=== PATIENT | male | born 1950 | race Caucasian/White ===

== ENCOUNTER → 2017-09-27 | Outpatient (CLI) | payer MEDICARE ==
[~2017-09-27] MED LIST: AMLODIPINE5 MG PO; CAPTOPRIL100 MG PO; CAPTOPRIL50 MG PO; GLYBURIDE5 MG PO; HYDROCHLOROTHIA25 MG PO; LOPRESSOR25 MG PO; METFORMIN HCL500 MG PO; MICRO-K 1010 MEQ PO; NORVASC; TOPROL XL50 MG PO; [UNRECOGNIZED DRUG - REMARK]
--- NOTE | ~2017-09-27 | PF ---
[place], [place] PULMONARY FUNCTION TEST [facility]: [facility]EN [facility]: [id number] UNIT #: [id number] ROOM: DOCTOR: SYLWIA ANGEL MD,ALEXIS BIRTHDATE: [birth year] DOS: 09/28/2017 ORDERED BY: Dr. Shaye Gaffney. HISTORY: The patient recorded as 66-year-old male, height of 63 inches, weight of 195 pounds with BMI of 34.5. The testing was done for assessment of symptoms of breath. Tobacco use was noted 1 pack of cigarettes per day for the patient for only 2 years. SPIROMETRY: The FVC was recorded at 3.57 liters, 106% predicted value normal. The FEV1 recorded 3.09 liters, 125% predicted value normal. The ratio of FEV1/FVC was recorded as 74%. Flow volume loop was noted normal. No postbronchodilator changes noted. LUNG VOLUME: Thoracic gas volume recorded as 140%, residual volume 149%, total lung capacity 110%. RV/TLC ratio 139%. The lung volume suggestive of mild obstructive airway pattern. The lung diffusion noted at 72%. It was not corrected carbon monoxide hemoglobin values. The patient's airway resistance and passive conductance noted normal. IMPRESSION: Mild reduction of lung diffusion noted for this patient, of unclear significance with mild air trapping as well. Clinical correlation would be advised. ALEXIS DAO MD CM:PFREPORT:PULMONARY FUNCTION TEST 1132 1817 ALEXIS ANGEL MD
== END | disposition home or self-care (01) ==
LOC: CP 08:25
DX: R06.02 Shortness of breath (principal)

== ENCOUNTER → 2017-10-03 | Outpatient (CLI) | payer MEDICARE | END | disposition home or self-care (01) | LOC: LAB 12:03 | DX: R50.9 Fever, unspecified (principal) ==

== ENCOUNTER 2017-10-18 16:28 | Emergency (ER) | payer MEDICARE ==
[~2017-10-18] VITALS: Ht 160 cm; Wt 87.5 kg
[2017-10-18 16:31] VITALS: BP 140/73
== END 2017-10-18 18:02 | disposition home or self-care (01) ==
LOC: ED 16:28
DX: S61.212A Laceration without foreign body of right middle finger without damage to nail, initial encounter (principal); Z96.651 Presence of right artificial knee joint; Z98.890 Other specified postprocedural states; Z79.899 Other long term (current) drug therapy; W26.0XXA Contact with knife, initial encounter; Y93.89 Activity, other specified; Y92.89 Other specified places as the place of occurrence of the external cause; Y99.9 Unspecified external cause status

== ENCOUNTER 2018-07-11 11:20 | Inpatient (IN) | payer MEDICARE ==
[~2018-07-11] VITALS: Ht 160 cm; Wt 88.1 kg
--- NOTE | ~2018-07-11 | PR ---
[place], [place] PROGRESS NOTE NAME: BERNARDO PETERSEN JR [facility] #: [id number] UNIT #: [id number] ROOM: 405 DOCTOR: ANNEL MELENDREZ MD BIRTHDATE: [birth year] DOS: 07/14/2018 SUBJECTIVE: The patient looks good, feels good and he does not have any complaints. He has a very rare cough. OBJECTIVE: VITAL SIGNS: Graphic trend shows a blood pressure 164/88, pulse of 70, respirations 20, temperature 98.6. LUNGS: Diminished breath sounds, clear. HEART: Regular. ABDOMEN: Obese, soft, nontender. EXTREMITIES: Without any edema. ASSESSMENT AND PLAN: 1. Right middle and lower lobe pneumonia, improving with antibiotics. 2. Mucus plugging with tracheobronchial lavage done yesterday. Bronch results so far showing normal tracy. 3. Chronic kidney disease stage 5, stable. 4. Type 2 diabetes mellitus, non-insulin dependent, with hypoglycemia. Medications were discontinued yesterday. This morning, blood sugar is slightly on the high side because D50 was given. I told the patient to hold off on Amaryl at home right now and we will restart it at a lower dose at a later time. 5. Metabolic encephalopathy from a combination of hypoglycemia and medications. Xanax dosage has been cut down significantly. Plan is to discharge to home today. ANNEL MELENDREZ MD CM:PNTRANS 0809 1008 ANNEL MELENDREZ MD 07/14/18 1007 interface
--- NOTE | ~2018-07-11 | CON ---
[place], [place] REPORT OF CONSULTATION NAME: BERNARDO PETERSEN JR [facility] #: [id number] UNIT #: [id number] ROOM: 405 DOCTOR: ALEXIS PALOMO MD BIRTHDATE: [birth year] DOS: 07/12/2018 PULMONARY CONSULTATION REASON FOR CONSULTATION: Assess the patient for the current medical management of acute pneumonia. HISTORY OF PRESENT ILLNESS: This is a 67-year-old white male patient, who has been admitted to the hospital under the care of Dr. Shaye Gaffney. The patient unable to provide me history. The patient noted current disorientation and not having a normal communication verbally. The patient has been noted ongoing acute illness ongoing with the respiratory symptoms on 06/22/2018. The symptom was noted progressive worsening, treated as an outpatient, but the symptoms have not responded to the treatment. The patient has a chest x-ray done outpatient that was reporting evidence of acute pneumonia in the lungs. The patient admitted to the hospital. He has been given Xanax 1 mg b.i.d. dosing. The patient was noted significant disoriented this morning, some confusional status, unable to give me any history. The symptoms had reported with shortness of breath with exertion, nonproductive cough as well. There were no symptoms of hemoptysis reported. The patient has been known with history of obstructive sleep apnea disorder in the past. The patient has been seen. Other history that has been documented in review of my medical record from the office setting. The patient's last assessment in 10/2017 as well as documentation medical records by Dr. Shaye Gaffney on this current admission. Review of systems could not be completed because of that. PAST MEDICAL HISTORY: Known with: 1. Obstructive sleep apnea disorder that has been treated with the CPAP. 2. Chronic kidney disease. 3. Essential hypertension. 4. Type 2 diabetes mellitus. 5. Acute coronary artery disease. 6. Mixed hyperlipidemia. 7. General anxiety disorder. SOCIAL HISTORY: The patient is . He has no children, lives at home prior to admission to the hospital. Tobacco use noted from age of [age] years old, 1 pack of cigarettes per day that was discontinued approximately 27 years ago. PAST SURGICAL HISTORY: 1. Noted with a surgery of the knee on the left side, ____ repair. 2. Lumbar laminectomy. 3. Cardiac catheterization and coronary artery stent insertion. FAMILY HISTORY: The patient's father at 89 years old, complication of congestive heart failure. Mother at 85 years old, complications of renal failure. HOME MEDICATIONS: Listed as use of aspirin, Rocaltrol, Coreg, Plavix, fenofibrate, ferric citrate, Lasix, Amaryl, hydralazine, Imdur, and Ranexa. [place], [place] REPORT OF CONSULTATION [facility] [id number] UNIT #: [id number] ROOM: 405 DOCTOR: SYLWIA ANGEL MD,ALEXIS BIRTHDATE: [birth year] DRUG ALLERGIES: No known drug allergies. CURRENT MEDICATIONS: Administered during this hospitalization use of hydralazine, Imdur, Lasix 40 mg oral, Plavix, calcitriol, aspirin, DuoNeb, Amaryl, Ranexa, Coreg, Mucinex, Xanax, Rocephin and Levaquin. PHYSICAL EXAMINATION: GENERAL: This is a 67-year-old white male patient who has been currently noted sitting on the bed without acute distress, but noted not to be completely oriented to time and place. VITAL SIGNS: Height of 5 feet 3 inches, weight 194 pounds, BMI 34.3. Normal temperature, respiratory rate 18-20, heart rate 63-77, blood pressure 152/80-165/79. Pulse oxygen saturation patient room air 98% saturation. HEENT: Head was atraumatic. Eyes nonicterus. NECK: Supple. CARDIOVASCULAR: S1, S2 audible. LUNGS: Noted with crackles mostly in the lower lung base, greater on the right than the left side. ABDOMEN: Soft, nontender. Bowel sounds present. EXTREMITIES: No acute edema. MUSCULOSKELETAL: Without acute deformities. CENTRAL NERVOUS SYSTEM: Cranial nerve for the patient cannot be examined. No gross focal neurologic deficit. MUSCULOSKELETAL: Moving upper and lower extremities at his own will. LABORATORY DATA: BMP on admission, BUN 72, creatinine 5.74. CBC of 07/12/2018, WBC count of 4.9, hemoglobin 9.1, hematocrit 29.4, and platelet count was normal. The CT scan of the chest that was done this morning that was personally reviewed shows moderate area of consolidation, infiltration, which appeared to be patchy and some consolidative area coalescence noted in the right lower lobe. Neck of the IV contrast does limit the assessment. Mediastinal structures. There were no pleural fluid noted grossly. Remaining lungs appeared to be clear. IMPRESSION: 1. The patient was noted this presentation may be related to medication. Other etiology to be excluded. Central nervous origin as well. 2. Acute pneumonia, right lower lobe. The patient possibly to aspiration pneumonia can be excluded with failed outpatient treatment. 3. The patient with chronic nicotine dependence, which was discontinued several years ago. 4. Obstructive sleep apnea disorder. 5. Chronic kidney disease stage 4 with possibility of acute superimposed component, acute injury secondary to intravascular volume depletion can be excluded. 6. Rule out metabolic acidosis. The patient on high PEEP because of the change in mental status and disorientation as well. PLAN OF MANAGEMENT: The patient antibiotic adjust kidney functions will be [place], [place] REPORT OF CONSULTATION NAME: BERNARDO PETERSEN JR UNIT #: [id number] ROOM: 405 DOCTOR: ALEXIS PALOMO MD BIRTHDATE: [birth year] continued. The patient is getting Levaquin, which is atypical coverage. Order urine for legionella antigen and strep antigen. Sputum for Gram stain and culture. Therapeutic bronchoscopy diagnostic, which has been scheduled to be done in the morning. The consent will be obtained from the patient's family member, certainly the patient would not be able to give me consent at the present time. Collect the sputum for influenza A and B, nasal washing has been ordered. The respiratory virus panel will be obtained as well. Other additional treatment changes will be done based on progression of the illness. Supportive care, other therapy, plan of management and care plan for the patient as well. Order the bronchodilator to help mobilize secretions as well. ALEXIS DAO MD CM:CONSTR:REPORT OF CONSULTATION 1257 07/12/18 [facility] interface
--- NOTE | ~2018-07-11 | DS ---
[place], [place] DISCHARGE SUMMARY NAME: BERNARDO PETERSEN JR [facility] #: [id number] UNIT #: [id number] ROOM: 405 DOCTOR: ANNEL MELENDREZ MD BIRTHDATE: [birth year] DOS: HOSPITAL COURSE: The patient is 67 years old. The patient is very well known to us, comes in with complaints of difficulty breathing and cough. Please refer to H and P for details. The patient after admission had a CT of the chest, which showed continued presence of pneumonia in the right middle and right lower lobe. The patient had failed outpatient regimen. Dr. Keating was consulted. The patient was placed on IV antibiotics and scheduled for a bronchoscopy. He developed some evidence of metabolic encephalopathy from a combination of hypoglycemia and high doses of Xanax that he has received at night. He does have a history of obstructive sleep apnea and was not using his BiPAP here. After being treated with IV antibiotics and a bronchoscopy, the patient is definitely improving, bronch cultures are negative and this morning, the patient feels better and his mental status has also improved. The plan is to discharge him to home. DISCHARGE DIAGNOSES: 1. Right middle and lower lobe pneumonia. 2. Metabolic encephalopathy. 3. Chronic kidney disease. 4. Benign hypertension. 5. Coronary artery disease with history of stent placement. 6. Mixed hyperlipidemia. 7. Aortic stenosis. 8. Generalized anxiety disorder. 9. Type 2 diabetes mellitus with hypoglycemia and metabolic encephalopathy. DISCHARGE MEDICATIONS: Will be doxycycline 100 mg twice a day for 10 days; hydralazine 50, which is increased to 3 times a day; Ranexa 500 b.i.d., Lasix 40 daily, Coreg 25 b.i.d., Plavix 75 daily, ferric citrate 210 tablet 1 tablet daily, isosorbide 30 daily, Rocaltrol 0.25 daily, aspirin 81 daily, fenofibrate 134 mg daily. Glimepiride was discontinued and the Xanax was made 0.5 mg daily at bedtime p.r.n. only. The Glimepiride will be restarted at a low dose once the blood sugar starts going up. [place], [place] DISCHARGE SUMMARY NAME: BERNARDO PETERSEN JR [facility] #: [id number] UNIT #: [id number] ROOM: 405 DOCTOR: ANNEL MELENDREZ MDDATE: [birth year] ANNEL MELENDREZ MD CM:LUCIANA 0 9 ANNEL MELENDREZ MD 07/14/18 0909 interface
--- NOTE | ~2018-07-11 | PROC NOTE ---
[place], [place] PROCEDURE NOTE NAME: [facility]EN JR [facility] [id number] UNIT #: [id number] ROOM: 405 DOCTOR: SYLWIA ANGEL MD,ALEXIS BIRTHDATE: [birth year] DOS: 07/13/2018 FIBEROPTIC BRONCHOSCOPY PREOPERATIVE DIAGNOSIS: The patient has large area of consolidation and infiltration, right lower lobe with severe nonproductive cough. POSTOPERATIVE DIAGNOSES: The patient has large area of consolidation and infiltration, right lower lobe with severe nonproductive cough. No endobronchial obstructive lesions. PROCEDURE DESCRIPTION: Informed consent was obtained from the patient. The patient was brought to the OR and placed in supine position. Conscious sedation administered by the Anesthesia Department. After achieving appropriate sedation, airway introduced into the mouth. Bronchoscope advanced into the airway into laryngeal area. Epiglottis and vocal cord seen. The vocal cord is moving symmetrical movement. Bronchoscope advanced through the vocal cord to the tracheal lumen. Tracheal lumen was identified. Tracheal lumen noted small amount of purulent secretion, suctioned out the giselle level. The right upper, right lower, left upper, lingula, and lower lobe bronchi were all examined. The patient noted moderate purulent secretion, right lower lobe endobronchial tree. Bronchial washing was taken and the labs, in the right lower lobe as well with mini BAL specimen. Procedure well tolerated by the patient without difficulty. Bronchial washing sent for all appropriate cultures. Procedure well tolerated by the patient. Postoperative finding will be discussed with the patient once the patient recovered the effects of acute sedation. No change in treatment immediately otherwise, it will be necessary. ALEXIS DAO MD CM:PROCNOTE:PROCEDURE NOTE 1314 0029 ALEXIS ANGEL MD
--- NOTE | ~2018-07-11 | WRIGHTHP ---
[place], [place] PATIENT HISTORY AND PHYSICAL EXAM NAME: BERNARDO PETERSEN JR [facility] #: [id number] UNIT #: [id number] ROOM: 405 DOCTOR: ANNEL MELENDREZ MD BIRTHDATE: [birth year] DOS: 07/11/2018 HISTORY OF PRESENT ILLNESS: The patient is 67 years old. The patient comes into the office with complaints of increasing cough, shortness of breath, was seen in the office on 06/22/2018 with similar complaints which started 3-4 days prior to being seen. Chest x-ray showed a small pneumonia. The patient was started on antibiotics and sent home. Since 06/22/2018 after the completion of antibiotics, he continues to feel poorly with continued shortness of breath. He was seen by Cardiology on Tuesday, had a chest x-ray ordered, which showed continued presence of pneumonia, so the patient was admitted to the hospital. He denies having any fever, any chills, any chest pains or palpitations. It is a terrible cough and is unable to sleep at night. He also has been increasingly short of breath on exertion. PAST MEDICAL HISTORY: Significant for; 1. Chronic kidney disease. 2. Benign hypertension. 3. Type 2 diabetes mellitus. 4. Coronary artery disease with history of stent placement. 5. Mixed hyperlipidemia. 6. Generalized anxiety disorder. MEDICATIONS: The patient currently is on are aspirin 81 daily, Xanax 1 mg twice a day p.r.n., Rocaltrol 0.25 mg Tuesday, Tuesday and Tuesday, Coreg 25 b.i.d., Plavix 75 daily, fenofibrate 134 daily, ferric citrate 210 daily, Lasix 40 daily, glimepiride 4 mg daily, hydralazine 50 b.i.d., isosorbide 30 daily, Ranexa 500 b.i.d. SOCIAL HISTORY: Nonsmoker. Does not use any alcohol. PHYSICAL EXAMINATION: GENERAL: He is awake and alert and oriented, slightly tachypneic, but the saturation on room air was in the 90s without any drop and exercise. VITAL SIGNS: Pressure is 165/79, pulse of 60, respirations 20, temperature 98.6. LUNGS: Diminished breath sounds, a few scattered rales heard in the right mid lung as well as in the bases. HEART: Regular. ABDOMEN: Obese, soft, nontender. EXTREMITIES: Without any edema. LABORATORY DATA: White cell count is 4.9, hemoglobin 9.1, hematocrit 29.4, platelets 244. BMP: Glucose 193, BUN 72, creatinine 5.74, GFR 10. Stage 5 renal failure. Sodium 138, potassium is 3.9, chloride 106, bicarbonate 25. CT of the chest shows right lower lobe pneumonia. ASSESSMENT AND PLAN: 1. The patient presents with shortness of breath, cough and recent diagnosis of pneumonia, which is not improved with conventional outpatient treatment, has been admitted. Intravenous antibiotics have been ordered. Consultation with [place], [place] PATIENT HISTORY AND PHYSICAL EXAM NAME: BERNARDO PETERSEN JR UNIT #: [id number] ROOM: 405 DOCTOR: ANNEL MELENDREZ MD BIRTHDATE: [birth year] Dr. Keating has been obtained. 2. Benign hypertension, poorly controlled. Readjust medications. 3. Chronic kidney disease stage 5, a slow intravenous hydration will be given for 24 hours. 4. Generalized anxiety disorder. This morning, the patient has developed metabolic encephalopathy, possibly from medications, but we will check a CT of the head in the morning. ANNEL MELENDREZ MD CM:HISPHYS:PATIENT HISTORY AND PHYSICAL EXAMINATION ANNEL MELENDREZ MD 07/12/18 0852 interface
--- NOTE | ~2018-07-11 | EKG ---
[place], [place] ELECTROCARDIOGRAM REPORT NAME: BERNARDO PETERSEN JR UNIT #: [id number] ROOM: 405 DOCTOR: DAINA DRAFT REPORT BIRTHDATE: [birth year] [facility] Test Date: 2018-07-12 Test Time: 12:32:31 Pat Name: BERNARDO PETERSEN Department: Room: 405 1 Gender: M [employer] Expert: 16 : 1950 Requested By: ALEXIS ANGEL Order Number: [id number] Reading MD: Jaron Dow MD Measurements Intervals Pinole Rate: 67 P: 33 SC: 212 QRS: -13 QRSD: 120 T: 59 QT: 494 QTc: 522 Interpretive Statements Sinus rhythm Multiple ventricular premature complexes Borderline prolonged SC interval LVH with secondary repolarization abnormality Prolonged QT interval Baseline wander in lead(s) V2 Electronically Signed On 07-13-2018 14:07:24 PST by Jaron Dow MD CM:EKGRPT:ELECTROCARDIOGRAM REPORT 1232 1407 ALEXIS LAMA DRAFT REPORT ALEXIS ANGEL MD
--- NOTE | ~2018-07-11 | PR ---
[place], [place] PROGRESS NOTE NAME: BERNARDO PETERSEN JR [facility] #: [id number] UNIT #: [id number] ROOM: 405 DOCTOR: SYLWIA ANGEL MD,ALEXIS BIRTHDATE: [birth year] DOS: 07/13/2018 SUBJECTIVE: The patient was noted to fully awake, alert, and oriented at this time as the medication ____ as Xanax. Disorientation has been improved. The cough has been still noted moderate and nonproductive. There were no symptoms of hemoptysis. Denies symptoms of chest pain. Denies symptoms of fever or chills. The patient is n.p.o. past midnight for bronchoscopy that was planned to be done today. Denies symptoms of nausea, vomiting, diarrhea, or any abdominal pain, hematemesis, melena. General weakness were reported. Remaining systems reviewed. They were noted all negative. OBJECTIVE: VITAL SIGNS: For the patient this morning, normal temperature, respiratory rate 20, heart 78, blood pressure 160/80. Pulse ox saturation was recorded as 96% on room air. HEENT: Head was atraumatic. Eyes nonicterus. NECK: Supple. CARDIOVASCULAR: S1, S2 is audible. LUNGS: Without any wheezing. Crackles noted in the right lower lung. ABDOMEN: Soft, nontender. Bowel sounds present. EXTREMITIES: Without acute edema. MUSCULOSKELETAL: Without acute deformity. CENTRAL NERVOUS SYSTEM: The patient's cranial nerves 2-12 intact. No focal deficit. LABORATORY DATA: CBC today, WBC count normal, hemoglobin 9.4, platelet count normal. Mycoplasma antibody IgG and IgM were both noted as normal range. CMP this morning, glucose is 34, which is already treated. BUN 65, creatinine 5.11. IMPRESSION: 1. The patient who has been currently noted large area of consolidation of acute infiltration in the right lower lobe. The arterial blood gas does not show hypercapnia yesterday which was obtained as a pH of 7.41, pCO2 of 33, pO2 of 89. This was done on room air. 2. The patient with iznhr-xj-hisxwff kidney injury with increased creatinine gradually was noted. 3. History of known obstructive sleep apnea disorder. 4. Hypoglycemia, already treated. PLAN OF MANAGEMENT: Proceed with the fiberoptic bronchoscopy as planned. No other change in treatment at this time immediately will be necessary and adjustment of medication or treatment changes will be ordered after the bronchoscopy. In the meantime, other therapy, plan of management, continue as well. Usual care. [place], [place] PROGRESS NOTE NAME: BERNARDO PETERSEN JR UNIT #: [id number] ROOM: [facility] DOCTOR: ALEXIS PALOMO MD BIRTHDATE: [birth year] ALEXIS DAO MD CM:PNTRANS 1312 002 ALEXIS ANGEL MD 07/14/18 0021 interface
--- NOTE | ~2018-07-11 | PR ---
[place], [place] PROGRESS NOTE [id number] #: [id number] ROOM: 405 DOCTOR: ALEXIS PALOMO MD BIRTHDATE: [birth year] DOS: 07/14/2018 PULMONARY PROGRESS NOTE SUBJECTIVE: The patient has a bronchoscopy done yesterday for right lower lobe pneumonia. The respiratory symptoms have been noted significantly improved including his cough. Denies symptoms of chest pain. Denies symptoms of fever or chills. OBJECTIVE: VITAL SIGNS: For the patient, which were recorded showed normal temperature, respiratory rate 20, pulse 77, blood pressure of 164/88. The pulse oxygen saturation recorded as 96% on room air. HEENT: Shows head was atraumatic. Eyes nonicterus. NECK: Supple. CARDIOVASCULAR: S1, S2 is audible. LUNGS: The patient was noted with occasional crackles in the right lower lung, otherwise clear. ABDOMEN: Soft, nontender, bowel sounds present. EXTREMITIES: Without any acute edema. LABORATORY DATA: Cultures of the bronchial washing was noted preliminary normal tracy. The Gram stain with many white blood cells, few epithelial cells, moderate Gram-positive cocci in clusters. IMPRESSION: 1. Acute right lower lobe pneumonia, which was noted assessed with bronchoscopy, clinical improvement was noted. 2. Obstructive sleep apnea disorder. PLAN OF TREATMENT: The patient will be discharged home on Levaquin 250 mg every day for the next 5 days of treatment. Outpatient followup was suggested for this patient. Additional treatment changes will be ordered based on the progression of illness. Discharge planning was discussed with Dr. Shaye Gaffney. [place], [place] PROGRESS NOTE [facility]: [facility] [id number] UNIT #: [id number] ROOM: 405 DOCTOR: ALEXIS PALOMO MD BIRTHDATE: [birth year] ALEXIS DAO MD CM:PNTRANS 1009 50 ALEXIS ANGEL MD 07/14/182249 interface
--- NOTE | ~2018-07-11 | PR ---
[place], [place] PROGRESS NOTE NAME: BERNARDO PETERSEN JR [facility] #: [id number] UNIT #: [id number] ROOM: 405 DOCTOR: ANNEL MELENDREZ MD BIRTHDATE: [birth year] DOS: 07/13/2018 SUBJECTIVE: The patient was seen after his bronchoscopy, has a cough, but otherwise feels okay. His mental status is improved. OBJECTIVE: VITAL SIGNS: Graphic trend shows a pressure of 148/82, pulse of 86, respirations 18, temperature 97.2. LUNGS: Clear except for few rales in the right side. HEART: Regular. ABDOMEN: Obese, soft, nontender. EXTREMITIES: Without any edema. LABORATORY DATA: WBC count is 7.2, hemoglobin 9.4, hematocrit 30.1, platelets 270. Comprehensive glucose 34, BUN 65, creatinine 5.11, sodium 142, potassium 4.0, chloride 111, bicarbonate 22. Liver enzymes normal. Mycoplasma pneumoniae antibody studies normal. ASSESSMENT AND PLAN: 1. The patient who presents with right-sided pneumonia, on IV antibiotics. 2. Continued cough and shortness of breath. Bronchoscopy was performed this morning. Awaiting culture results. 3. Metabolic encephalopathy, most likely from hypoglycemia as well as Xanax high doses that he received, which was discontinued. 4. Type 2 diabetes mellitus, controlled, but blood sugar was low this morning. We will discontinue medications. ANNEL MELENDREZ MD CM:PNNIMESH 0840 1130 ANNEL MELENDREZ MD 07/13/18 1129 interface
[2018-07-11] MEDS ORDERED: RANEXA500 M1 PO (11:51)
[2018-07-11] MEDS ORDERED: HYDRALAZINE HYD50 MG PO (11:51)
[2018-07-11] MEDS ORDERED: FUROSEMIDE40 MG PO (11:52)
[2018-07-11 11:53] VITALS: BP 153/80
[2018-07-11] MEDS ORDERED: CARVEDILOL25 MG PO (11:53)
[2018-07-11] MEDS ORDERED: AMARYL4 MG PO (11:54)
[2018-07-11] MEDS ORDERED: CLOPIDOGREL75 MG PO (11:54)
[2018-07-11] MEDS ORDERED: AURYXIA210 MG PO (11:55)
[2018-07-11] MEDS ORDERED: ISOSORBIDE30 MG PO (11:55)
[2018-07-11] MEDS ORDERED: Rocaltrol0.25 MCG PO (11:56)
[2018-07-11] MEDS ORDERED: ASPIRIN ADULT L81 M1 PO (11:57)
[2018-07-11] MEDS ORDERED: FENOFIBRATE MI134 MG PO (11:59)
[2018-07-11] MEDS ORDERED: XANAX1 MG PO ×2 (12:31→12:32)
[2018-07-11 15:16] LABS: CREATININE 5.74 mg/dL (0.70-1.30); POTASSIUM 3.9 mmol/L (3.5-5.1)
[2018-07-11 16:00] VITALS: BP 172/87
[2018-07-11 20:00] VITALS: BP 165/96
[2018-07-12] VITALS: BP 165/79
[2018-07-12 07:31] LABS: BASO % 0.6 % (0.0-1.0); EOS # 0.1 10*3/uL (0.0-0.4); HEMATOCRIT 29.4 % (42.0-52.0); HEMOGLOBIN 9.1 g/dl (14.0-18.0); LYMPH % 19.7 % (27.0-41.0); MEAN CELL VOLUME 92.5 fl (80.0-94.0); MEAN CORPUSCULAR HGB 28.6 pg (27.0-31.0); MEAN PLATELET VOLUME 9.1 fl (9.6-12.3); MONO # 0.5 10*3/uL (0.1-1.0); MONO % 10.5 % (3.0-9.0); NEUT # 3.3 10*3/uL (2.3-7.9); PLATELET COUNT AUTOMATED 244 10*3/uL (130-400); RED BLOOD COUNT 3.18 10*6/uL (4.50-5.90); RED CELL DISTRI WIDTH 17.8 % (0-14.5); WHITE BLOOD COUNT 4.9 10*3/uL (4.8-10.8)
[2018-07-12 10:50] LABS: ACT PARTIAL THROMBO TIME 26.4 SECONDS (20.8-31.5); INTERNATIONAL NORM RATIO 1.1 (2.0-3.5)
[2018-07-12 12:00] VITALS: BP 127/53
[2018-07-12 13:22] LABS: ABG BASE EXCESS -2.7 mmol/L (-2.0-2.0); ABG O2 SATURATION 97.9 % (95-97); ARTERIAL BLOOD GAS PCO2 33.6 mmHg (35-45); ARTERIAL BLOOD GAS PH 7.411 (7.35-7.45); ARTERIAL BLOOD GAS PO2 89.4 mmHg (80-90)
[2018-07-12 14:05] LABS: MYCOPLASMA PNEUMONIAE IGG <100 U/mL (0-99); MYCOPLASMA PNEUMONIAE IGM <770 U/mL (0-769)
[2018-07-12 16:00] VITALS: BP 119/70
[2018-07-12 20:00] VITALS: BP 170/95
[2018-07-13] VITALS (9 sets, daily range): BP systolic 135–221; BP diastolic 71–116
[2018-07-13 06:41] LABS: BASO # 0.1 10*3/uL (0.0-0.1); BASO % 0.8 % (0.0-1.0); EOS # 0.3 10*3/uL (0.0-0.4); EOS % 3.5 % (1.0-4.0); HEMATOCRIT 30.1 % (42.0-52.0); HEMOGLOBIN 9.4 g/dl (14.0-18.0); LYMPH # 1.4 10*3/uL (1.3-4.4); MEAN CELL VOLUME 91.8 fl (80.0-94.0); MEAN CORPUSCULAR HGB 28.7 pg (27.0-31.0); MEAN CORPUSCULAR HGB CONC 31.2 g/dl (33.0-37.0); MEAN PLATELET VOLUME 9.6 fl (9.6-12.3); MONO # 0.8 10*3/uL (0.1-1.0); MONO % 11.4 % (3.0-9.0); NEUT # 4.7 10*3/uL (2.3-7.9); PLATELET COUNT AUTOMATED 270 10*3/uL (130-400); RED BLOOD COUNT 3.28 10*6/uL (4.50-5.90); RED CELL DISTRI WIDTH 18.2 % (0-14.5); WHITE BLOOD COUNT 7.2 10*3/uL (4.8-10.8)
[2018-07-13 07:17] LABS: CREATININE 5.11 mg/dL (0.70-1.30)
[2018-07-14] VITALS: BP 164/88
[2018-07-14 07:02] LABS: ALBUMIN 2.7 gm/dl (3.1-4.5); CREATININE 5.23 mg/dL (0.70-1.30); POTASSIUM 3.7 mmol/L (3.5-5.1); TOTAL PROTEIN 6.6 gm/dL (6.4-8.2)
[2018-07-14] MEDS ORDERED: HYDRALAZINE HYD50 MG PO (08:09)
[2018-07-14] MEDS ORDERED: DOXYCYCLINE100 M3 PO (08:09)
[2018-07-14 14:09] LABS: ACID FAST SPEC PROCESSING Concentration (.)
[2018-07-15 03:07] LABS: ADENOVIRUS Negative (Negative); INFLUENZA A Negative (Negative); INFLUENZA B Negative (Negative); METAPNEUMOVIRUS Negative (Negative); PARAINFLUENZA 1 Negative (Negative); PARAINFLUENZA 2 Negative (Negative); PARAINFLUENZA 3 Negative (Negative); RHINOVIRUS Negative (Negative); RSV A Negative (Negative); RSV B Negative (Negative)
== END 2018-07-14 10:22 | disposition home or self-care (01) | DRG 70 ==
LOC: 4E 11:20
PROVIDERS: Internal Medicine; Internal Medicine Critical Care Medicine
PROC: 0BC18ZZ Extirpation of Matter from Trachea, Via Natural or Artificial Opening Endoscopic (ICD-10-PCS; principal; 2018-07-13)
PROC: 0BC68ZZ Extirpation of Matter from Right Lower Lobe Bronchus, Via Natural or Artificial Opening Endoscopic (ICD-10-PCS; principal; 2018-07-13)
PROC: 0B9F8ZX Drainage of Right Lower Lung Lobe, Via Natural or Artificial Opening Endoscopic, Diagnostic (ICD-10-PCS; principal; 2018-07-13)
DX: G93.41 Metabolic encephalopathy (principal); J18.1 Lobar pneumonia, unspecified organism; I12.0 Hypertensive chronic kidney disease with stage 5 chronic kidney disease or end stage renal disease; N18.5 Chronic kidney disease, stage 5; N17.9 Acute kidney failure, unspecified; E11.649 Type 2 diabetes mellitus with hypoglycemia without coma; E11.22 Type 2 diabetes mellitus with diabetic chronic kidney disease; G47.33 Obstructive sleep apnea (adult) (pediatric); F41.1 Generalized anxiety disorder; I35.0 Nonrheumatic aortic (valve) stenosis; I25.10 Atherosclerotic heart disease of native coronary artery without angina pectoris; Z95.5 Presence of coronary angioplasty implant and graft; Z87.891 Personal history of nicotine dependence; Z82.49 Family history of ischemic heart disease and other diseases of the circulatory system; Z84.1 Family history of disorders of kidney and ureter

== ENCOUNTER → 2019-05-09 | Outpatient (CLI) | payer MEDICARE ==
[~2019-05-09] MED LIST changes: +AMARYL4 MG PO; +ASPIRIN ADULT L81 M1 PO; +AURYXIA210 MG PO; +CARVEDILOL25 MG PO; +CLOPIDOGREL75 MG PO; +DOXYCYCLINE100 M3 PO; +FENOFIBRATE MI134 MG PO; +FUROSEMIDE40 MG PO; +HYDRALAZINE HYD50 MG PO; +ISOSORBIDE30 MG PO; +RANEXA500 M1 PO; +Rocaltrol0.25 MCG PO; +XANAX1 MG PO
== END | disposition home or self-care (01) ==
LOC: LAB 00:53
DX: N17.9 Acute kidney failure, unspecified (principal)

== ENCOUNTER → 2019-05-16 | Outpatient (CLI) | payer MEDICARE | END | disposition home or self-care (01) | LOC: LAB 00:03 | DX: N17.9 Acute kidney failure, unspecified (principal) ==

== ENCOUNTER 2019-08-20 10:49 | Emergency (ER) | payer MEDICARE ==
[~2019-08-20] VITALS: Ht 157.4 cm; Wt 93.0 kg
[2019-08-20 11:02] VITALS: BP 114/54
[2019-08-20] MEDS ORDERED: VALTREX500 MG PO (13:19)
[2019-08-20] MEDS ORDERED: DOXYCYCLINE100 M3 PO (13:19)
== END 2019-08-20 13:08 ==
LOC: ED 10:49
DX: B02.9 Zoster without complications (principal); L02.811 Cutaneous abscess of head [any part, except face]; E78.00 Pure hypercholesterolemia, unspecified; I10 Essential (primary) hypertension; E11.9 Type 2 diabetes mellitus without complications; Z79.899 Other long term (current) drug therapy; Z79.82 Long term (current) use of aspirin

== ENCOUNTER 2019-10-01 10:59 | Emergency (ER) | payer MEDICARE ==
[~2019-10-01 10:59] MED LIST changes: +VALTREX500 MG PO
[2019-10-01 13:52] VITALS: BP 138/94
== END 2019-10-01 14:18 | disposition home or self-care (01) ==
LOC: ED 10:59
DX: S22.42XA Multiple fractures of ribs, left side, initial encounter for closed fracture (principal); I12.0 Hypertensive chronic kidney disease with stage 5 chronic kidney disease or end stage renal disease; E11.22 Type 2 diabetes mellitus with diabetic chronic kidney disease; N18.6 End stage renal disease; E78.00 Pure hypercholesterolemia, unspecified; Z79.82 Long term (current) use of aspirin; Z79.899 Other long term (current) drug therapy; Z99.2 Dependence on renal dialysis; W01.0XXA Fall on same level from slipping, tripping and stumbling without subsequent striking against object, initial encounter; Y93.89 Activity, other specified; Y92.89 Other specified places as the place of occurrence of the external cause; Y99.8 Other external cause status

== ENCOUNTER 2019-10-10 08:25 | Emergency (ER) | payer MEDICARE ==
[~2019-10-10] VITALS: Ht 157.4 cm; Wt 93.0 kg
[2019-10-10 08:25] VITALS: BP 125/66
[2019-10-10 08:48] LABS: BASO # 0.1 10*3/uL (0.0-0.1); BASO % 0.8 % (0.0-1.0); EOS # 0.2 10*3/uL (0.0-0.4); EOS % 2.9 % (1.0-4.0); HEMATOCRIT 39.3 % (42.0-52.0); HEMOGLOBIN 12.9 g/dl (14.0-18.0); LYMPH # 2.1 10*3/uL (1.3-4.4); LYMPH % 25.7 % (27.0-41.0); MEAN CELL VOLUME 105.4 fl (80.0-94.0); MEAN CORPUSCULAR HGB 34.6 pg (27.0-31.0); MEAN CORPUSCULAR HGB CONC 32.8 g/dl (33.0-37.0); MEAN PLATELET VOLUME 9.3 fl (9.6-12.3); MONO % 11.5 % (3.0-9.0); NEUT # 4.9 10*3/uL (2.3-7.9); NEUT % 58.7 % (47.0-73.0); PLATELET COUNT AUTOMATED 215 10*3/uL (130-400); RED BLOOD COUNT 3.73 10*6/uL (4.50-5.90); RED CELL DISTRI WIDTH 13.3 % (0-14.5); WHITE BLOOD COUNT 8.3 10*3/uL (4.8-10.8)
[2019-10-10 09:02] LABS: ACT PARTIAL THROMBO TIME 25.9 SECONDS (20.0-32.1)
[2019-10-10 09:04] LABS: ALBUMIN 3.5 gm/dl (3.1-4.5); CREATININE 5.17 mg/dL (0.70-1.30); TOTAL PROTEIN 8.1 gm/dL (6.4-8.2); TROPONIN I 0.036 ng/ml (<0.045)
== END 2019-10-10 10:08 | disposition left against medical advice (07) ==
LOC: ED 08:25
PROVIDERS: Emergency Medicine
DX: R07.9 Chest pain, unspecified (principal); E11.9 Type 2 diabetes mellitus without complications; I10 Essential (primary) hypertension; E78.00 Pure hypercholesterolemia, unspecified; Z79.899 Other long term (current) drug therapy

== ENCOUNTER → 2019-12-04 | Outpatient (CLI) | payer MEDICARE | END | disposition home or self-care (01) | LOC: US 10:30 → LAB 10:40 | DX: I65.23 Occlusion and stenosis of bilateral carotid arteries (principal); I25.10 Atherosclerotic heart disease of native coronary artery without angina pectoris; I35.0 Nonrheumatic aortic (valve) stenosis; N18.6 End stage renal disease ==

== ENCOUNTER 2021-11-16 14:32 | Emergency (ER) | payer MEDICARE ==
[~2021-11-16] VITALS: Wt 88.5 kg
[2021-11-16 15:39] VITALS: BP 106/72
[2021-11-16] MEDS ORDERED: TYLENOL325 M1 PO (18:28)
[2021-11-16] MEDS ORDERED: LIDODERM1 EACH T (18:28)
== END 2021-11-16 18:29 | disposition home or self-care (01) ==
LOC: ED 14:32
DX: S22.42XA Multiple fractures of ribs, left side, initial encounter for closed fracture (principal); S80.812A Abrasion, left lower leg, initial encounter; S80.811A Abrasion, right lower leg, initial encounter; S40.812A Abrasion of left upper arm, initial encounter; S40.811A Abrasion of right upper arm, initial encounter; Z98.890 Other specified postprocedural states; Z79.899 Other long term (current) drug therapy; Z79.82 Long term (current) use of aspirin; W18.30XA Fall on same level, unspecified, initial encounter; Y93.01 Activity, walking, marching and hiking; Y92.89 Other specified places as the place of occurrence of the external cause; Y99.9 Unspecified external cause status

== ENCOUNTER → 2021-12-12 | Outpatient (CLI) | payer MEDICARE ==
[~2021-12-12] MED LIST changes: +LIDODERM1 EACH T; +TYLENOL325 M1 PO
== END | disposition home or self-care (01) ==
LOC: CT 08:00
PROVIDERS: ATTEND Internal Medicine
DX: R06.02 Shortness of breath (principal); Z98.890 Other specified postprocedural states

== ENCOUNTER 2022-02-10 13:27 | Emergency (ER) | payer MEDICARE ==
[~2022-02-10] VITALS: Wt 88.5 kg
[2022-02-10 13:44] VITALS: BP 105/69
[2022-02-10] MEDS ORDERED: Lopressor25 MG PO (13:54)
[2022-02-10] MEDS ORDERED: 'XANAX1 MG PO (13:54)
[2022-02-10] MEDS ORDERED: SERTRALINE HYDR25 MG PO (13:54)
[2022-02-10] MEDS ORDERED: MONTELUKAST SOD10 MG PO (13:55)
[2022-02-10] MEDS ORDERED: GLIPIZIDE5 MG PO (13:55)
== END 2022-02-10 15:34 | disposition home or self-care (01) ==
LOC: ED 13:27
DX: M79.642 Pain in left hand (principal); Z88.8 Allergy status to other drugs, medicaments and biological substances; Z79.899 Other long term (current) drug therapy

== ENCOUNTER → 2022-02-25 | Outpatient (CLI) | payer MEDICARE ==
[~2022-02-25] MED LIST changes: +'XANAX1 MG PO; +GLIPIZIDE5 MG PO; +Lopressor25 MG PO; +MONTELUKAST SOD10 MG PO; +SERTRALINE HYDR25 MG PO
== END | disposition home or self-care (01) ==
LOC: CT 15:00
PROVIDERS: ATTEND Internal Medicine
DX: K57.32 Diverticulitis of large intestine without perforation or abscess without bleeding (principal); J90 Pleural effusion, not elsewhere classified; J92.9 Pleural plaque without asbestos; I25.10 Atherosclerotic heart disease of native coronary artery without angina pectoris; N26.1 Atrophy of kidney (terminal); N20.0 Calculus of kidney

== ENCOUNTER → 2022-08-23 | Outpatient (CLI) | payer MEDICARE ==
[2022-08-23 14:19] LABS: INTERNATIONAL NORM RATIO 3.5 (2.0-3.5)
== END | disposition home or self-care (01) ==
LOC: LAB 13:46
PROVIDERS: ATTEND Internal Medicine
DX: R06.02 Shortness of breath (principal)

== ENCOUNTER 2022-09-20 13:32 | Emergency (ER) | payer MEDICARE ==
[~2022-09-20] VITALS: Wt 87.2 kg
[2022-09-20 14:28] LABS: BASO # 0.1 10*3/uL (0.0-0.1); EOS # 0.1 10*3/uL (0.0-0.4); EOS % 1.9 % (1.0-4.0); HEMATOCRIT 41.9 % (42.0-52.0); LYMPH # 2.7 10*3/uL (1.3-4.4); LYMPH % 36.6 % (27.0-41.0); MEAN CELL VOLUME 102.9 fl (80.0-94.0); MEAN CORPUSCULAR HGB 35.1 pg (27.0-31.0); MEAN CORPUSCULAR HGB CONC 34.1 g/dl (33.0-37.0); MEAN PLATELET VOLUME 9.3 fl (9.6-12.3); MONO % 14.1 % (3.0-9.0); NEUT # 3.4 10*3/uL (2.3-7.9); NEUT % 46.3 % (47.0-73.0); PLATELET COUNT AUTOMATED 208 10*3/uL (130-400); RED BLOOD COUNT 4.07 10*6/uL (4.50-5.90); RED CELL DISTRI WIDTH 13.3 % (0-14.5); WHITE BLOOD COUNT 7.4 10*3/uL (4.8-10.8)
[2022-09-20 14:44] LABS: TOTAL PROTEIN 7.9 gm/dL (6.0-8.0)
[2022-09-20 14:47] LABS: ACT PARTIAL THROMBO TIME 28.8 SECONDS (20.0-32.1)
[2022-09-20 14:51] VITALS: BP 122/65
== END 2022-09-20 16:26 | disposition home or self-care (01) ==
LOC: ED 13:32
PROVIDERS: Emergency Medicine
DX: R07.89 Other chest pain (principal); F32.A Depression, unspecified; I10 Essential (primary) hypertension; Z87.442 Personal history of urinary calculi; Z88.5 Allergy status to narcotic agent; Z88.8 Allergy status to other drugs, medicaments and biological substances; Z96.651 Presence of right artificial knee joint; Z98.890 Other specified postprocedural states

== ENCOUNTER 2022-11-04 15:54 | Emergency (ER) | payer MEDICARE ==
[2022-11-04 16:44] LABS: BASO % 0.3 % (0.0-1.0); EOS # 0.1 10*3/uL (0.0-0.4); EOS % 1.2 % (1.0-4.0); HEMATOCRIT 36.7 % (42.0-52.0); LYMPH # 1.9 10*3/uL (1.3-4.4); LYMPH % 20.5 % (27.0-41.0); MEAN CELL VOLUME 103.7 fl (80.0-94.0); MEAN CORPUSCULAR HGB 35.3 pg (27.0-31.0); MEAN CORPUSCULAR HGB CONC 34.1 g/dl (33.0-37.0); MEAN PLATELET VOLUME 10.3 fl (9.6-12.3); MONO # 1.1 10*3/uL (0.1-1.0); MONO % 11.9 % (3.0-9.0); NEUT % 65.3 % (47.0-73.0); PLATELET COUNT AUTOMATED 142 10*3/uL (130-400); RED BLOOD COUNT 3.54 10*6/uL (4.50-5.90); RED CELL DISTRI WIDTH 13.5 % (0-14.5); WHITE BLOOD COUNT 9.2 10*3/uL (4.8-10.8)
[2022-11-04 17:10] LABS: TOTAL PROTEIN 6.9 gm/dL (6.0-8.0)
[2022-11-04 17:24] VITALS: BP 123/77
== END 2022-11-04 20:09 | disposition home or self-care (01) ==
LOC: ED 15:54
PROVIDERS: Emergency Medicine
DX: R55 Syncope and collapse (principal); Z79.899 Other long term (current) drug therapy; Z88.6 Allergy status to analgesic agent

== ENCOUNTER 2022-11-12 16:35 | Emergency (ER) | payer MEDICARE ==
[~2022-11-12] VITALS: Ht 160 cm; Wt 87.5 kg
[2022-11-12 18:13] VITALS: BP 149/74
[2022-11-12 18:43] LABS: BASO # 0.1 10*3/uL (0.0-0.1); BASO % 0.5 % (0.0-1.0); EOS # 0.1 10*3/uL (0.0-0.4); EOS % 1.5 % (1.0-4.0); HEMATOCRIT 41.1 % (42.0-52.0); LYMPH # 1.6 10*3/uL (1.3-4.4); LYMPH % 16.3 % (27.0-41.0); MEAN CELL VOLUME 106.5 fl (80.0-94.0); MEAN CORPUSCULAR HGB CONC 32.8 g/dl (33.0-37.0); MEAN PLATELET VOLUME 10.8 fl (9.6-12.3); MONO # 0.9 10*3/uL (0.1-1.0); MONO % 9.9 % (3.0-9.0); NEUT # 6.8 10*3/uL (2.3-7.9); NEUT % 71.4 % (47.0-73.0); PLATELET COUNT AUTOMATED 142 10*3/uL (130-400); RED BLOOD COUNT 3.86 10*6/uL (4.50-5.90); RED CELL DISTRI WIDTH 13.7 % (0-14.5); WHITE BLOOD COUNT 9.5 10*3/uL (4.8-10.8)
[2022-11-12 18:57] LABS: POTASSIUM 4.6 mmol/L (3.4-5.1); TOTAL PROTEIN 7.5 gm/dL (6.0-8.0)
[2022-11-12] MEDS ORDERED: CEPHALEXIN250 M1 PO (19:08)
[2022-11-12] MEDS ORDERED: PREDNISONE20 M1 PO (19:08)
== END 2022-11-12 19:37 | disposition home or self-care (01) ==
LOC: ED 16:35
PROVIDERS: Internal Medicine
DX: R21 Rash and other nonspecific skin eruption (principal); L03.114 Cellulitis of left upper limb; L03.113 Cellulitis of right upper limb; R79.89 Other specified abnormal findings of blood chemistry; D75.89 Other specified diseases of blood and blood-forming organs; E11.65 Type 2 diabetes mellitus with hyperglycemia; I12.0 Hypertensive chronic kidney disease with stage 5 chronic kidney disease or end stage renal disease; E11.22 Type 2 diabetes mellitus with diabetic chronic kidney disease; N18.6 End stage renal disease; Z99.2 Dependence on renal dialysis; Z88.6 Allergy status to analgesic agent; Z79.899 Other long term (current) drug therapy

== ENCOUNTER → 2023-03-09 | Outpatient (CLI) | payer MEDICARE ==
[~2023-03-09] MED LIST changes: +CEPHALEXIN250 M1 PO; +DUPIXENT P300 MG/2 M SQ; +ESCITALOPRAM OX10 MG PO; +GABAPENTIN100 M2 PO; +JANTOVEN1 MG PO; +PREDNISONE20 M1 PO; +RENA-VITE RX T1 EACH PO; +WARFARIN SOD2 MG PO
[2023-03-09 15:38] LABS: INTERNATIONAL NORM RATIO 1.6 (2.0-3.5)
[2023-03-10 15:07] LABS: ANTI-DSDNA ANTIBODIES <1 IU/mL (0-9)
== END | disposition home or self-care (01) ==
LOC: LAB 15:09
PROVIDERS: ATTEND Internal Medicine
DX: C43.9 Malignant melanoma of skin, unspecified (principal); R55 Syncope and collapse; R07.89 Other chest pain

== ENCOUNTER 2023-04-01 13:05 | Emergency (ER) | payer MEDICARE ==
[2023-04-01 13:14] VITALS: BP 117/79
[2023-04-01 13:57] LABS: BASO # 0.1 10*3/uL (0.0-0.1); BASO % 1.3 % (0.0-1.0); EOS # 0.1 10*3/uL (0.0-0.4); EOS % 2.4 % (1.0-4.0); HEMATOCRIT 35.3 % (42.0-52.0); LYMPH # 1.3 10*3/uL (1.3-4.4); LYMPH % 27.9 % (27.0-41.0); MEAN CELL VOLUME 98.1 fl (80.0-94.0); MEAN CORPUSCULAR HGB 33.3 pg (27.0-31.0); MEAN PLATELET VOLUME 9.5 fl (9.6-12.3); MONO # 0.6 10*3/uL (0.1-1.0); MONO % 13.7 % (3.0-9.0); NEUT # 2.5 10*3/uL (2.3-7.9); NEUT % 54.5 % (47.0-73.0); PLATELET COUNT AUTOMATED 142 10*3/uL (130-400); RED CELL DISTRI WIDTH 15.1 % (0-14.5); WHITE BLOOD COUNT 4.6 10*3/uL (4.8-10.8)
[2023-04-01 14:18] LABS: POTASSIUM 2.8 mmol/L (3.4-5.1); TOTAL PROTEIN 7.3 gm/dL (6.0-8.0)
== END 2023-04-01 15:46 | disposition home or self-care (01) ==
LOC: ED 13:05
PROVIDERS: Nurse Practitioner Family
DX: M25.562 Pain in left knee (principal); M25.561 Pain in right knee; M54.50 Low back pain, unspecified; E11.9 Type 2 diabetes mellitus without complications; I10 Essential (primary) hypertension; Z87.442 Personal history of urinary calculi; Z88.5 Allergy status to narcotic agent; Z96.651 Presence of right artificial knee joint; Z98.890 Other specified postprocedural states

== ENCOUNTER → 2023-04-07 | Outpatient (CLI) | payer MEDICARE | END | disposition home or self-care (01) | LOC: WOUNDCARE 10:41 | PROVIDERS: ATTEND Nurse Practitioner Family | DX: S81.001A Unspecified open wound, right knee, initial encounter (principal); R21 Rash and other nonspecific skin eruption; I10 Essential (primary) hypertension; I25.10 Atherosclerotic heart disease of native coronary artery without angina pectoris; L28.1 Prurigo nodularis; E11.9 Type 2 diabetes mellitus without complications; J30.2 Other seasonal allergic rhinitis; L03.90 Cellulitis, unspecified; I48.91 Unspecified atrial fibrillation; F41.9 Anxiety disorder, unspecified; Z87.891 Personal history of nicotine dependence; Z95.4 Presence of other heart-valve replacement; Z96.653 Presence of artificial knee joint, bilateral; Z99.2 Dependence on renal dialysis; W19.XXXA Unspecified fall, initial encounter; Y93.89 Activity, other specified; Y92.098 Other place in other non-institutional residence as the place of occurrence of the external cause; Y99.8 Other external cause status ==

== ENCOUNTER → 2023-04-12 | Outpatient (CLI) | payer MEDICARE | END | disposition home or self-care (01) | LOC: WOUNDCARE 01:14 | PROVIDERS: ATTEND Nurse Practitioner Family | DX: S81.001D Unspecified open wound, right knee, subsequent encounter (principal); S81.002A Unspecified open wound, left knee, initial encounter; R21 Rash and other nonspecific skin eruption; L28.1 Prurigo nodularis; I10 Essential (primary) hypertension; I25.10 Atherosclerotic heart disease of native coronary artery without angina pectoris; I48.91 Unspecified atrial fibrillation; J30.2 Other seasonal allergic rhinitis; F41.9 Anxiety disorder, unspecified; Z87.891 Personal history of nicotine dependence; Z95.4 Presence of other heart-valve replacement; Z95.5 Presence of coronary angioplasty implant and graft; Z96.653 Presence of artificial knee joint, bilateral; Z99.2 Dependence on renal dialysis; X58.XXXD Exposure to other specified factors, subsequent encounter; X58.XXXA Exposure to other specified factors, initial encounter; Y93.89 Activity, other specified; Y92.89 Other specified places as the place of occurrence of the external cause; Y99.8 Other external cause status ==

== ENCOUNTER → 2023-04-28 | Outpatient (CLI) | payer MEDICARE | END | disposition home or self-care (01) | LOC: US 04-19 08:30 | PROVIDERS: ATTEND Nurse Practitioner Family | DX: I73.9 Peripheral vascular disease, unspecified (principal); R60.9 Edema, unspecified; I87.2 Venous insufficiency (chronic) (peripheral); R60.0 Localized edema ==

== ENCOUNTER → 2023-05-05 | Outpatient (CLI) | payer MEDICARE | LOC: WOUNDCARE 00:52 | PROVIDERS: ATTEND Nurse Practitioner Family | DX: E11.622 Type 2 diabetes mellitus with other skin ulcer (principal); L97.811 Non-pressure chronic ulcer of other part of right lower leg limited to breakdown of skin; L97.828 Non-pressure chronic ulcer of other part of left lower leg with other specified severity; L28.1 Prurigo nodularis; L03.90 Cellulitis, unspecified; E11.51 Type 2 diabetes mellitus with diabetic peripheral angiopathy without gangrene; I25.10 Atherosclerotic heart disease of native coronary artery without angina pectoris; I10 Essential (primary) hypertension; I48.91 Unspecified atrial fibrillation; J30.2 Other seasonal allergic rhinitis; F41.9 Anxiety disorder, unspecified; Z87.891 Personal history of nicotine dependence; Z95.4 Presence of other heart-valve replacement; Z95.5 Presence of coronary angioplasty implant and graft; Z96.653 Presence of artificial knee joint, bilateral; Z99.2 Dependence on renal dialysis ==

== ENCOUNTER → 2023-05-12 | Outpatient (CLI) | payer MEDICARE | END | disposition home or self-care (01) | LOC: WOUNDCARE 00:49 | PROVIDERS: ATTEND Nurse Practitioner Family | DX: E11.622 Type 2 diabetes mellitus with other skin ulcer (principal); L97.812 Non-pressure chronic ulcer of other part of right lower leg with fat layer exposed; L97.828 Non-pressure chronic ulcer of other part of left lower leg with other specified severity; E11.51 Type 2 diabetes mellitus with diabetic peripheral angiopathy without gangrene; L28.1 Prurigo nodularis; L03.90 Cellulitis, unspecified; I25.10 Atherosclerotic heart disease of native coronary artery without angina pectoris; I10 Essential (primary) hypertension; J30.2 Other seasonal allergic rhinitis; I48.91 Unspecified atrial fibrillation; F41.9 Anxiety disorder, unspecified; Z87.891 Personal history of nicotine dependence; Z95.4 Presence of other heart-valve replacement; Z95.5 Presence of coronary angioplasty implant and graft; Z96.653 Presence of artificial knee joint, bilateral; Z99.2 Dependence on renal dialysis ==

== ENCOUNTER → 2023-05-20 | Outpatient (CLI) | payer MEDICARE | END | disposition home or self-care (01) | LOC: WOUNDCARE 01:53 | PROVIDERS: ATTEND Nurse Practitioner Family | DX: E11.622 Type 2 diabetes mellitus with other skin ulcer (principal); L97.812 Non-pressure chronic ulcer of other part of right lower leg with fat layer exposed; L97.828 Non-pressure chronic ulcer of other part of left lower leg with other specified severity; E11.51 Type 2 diabetes mellitus with diabetic peripheral angiopathy without gangrene; I25.10 Atherosclerotic heart disease of native coronary artery without angina pectoris; L28.1 Prurigo nodularis; L03.90 Cellulitis, unspecified; I10 Essential (primary) hypertension; I48.91 Unspecified atrial fibrillation; J30.2 Other seasonal allergic rhinitis; F41.9 Anxiety disorder, unspecified; Z87.891 Personal history of nicotine dependence; Z95.4 Presence of other heart-valve replacement; Z95.5 Presence of coronary angioplasty implant and graft; Z96.653 Presence of artificial knee joint, bilateral; Z99.2 Dependence on renal dialysis ==

== ENCOUNTER → 2023-05-26 | Outpatient (CLI) | payer MEDICARE | END | disposition home or self-care (01) | LOC: WOUNDCARE 01:19 | PROVIDERS: ATTEND Nurse Practitioner Family | DX: E11.622 Type 2 diabetes mellitus with other skin ulcer (principal); L97.812 Non-pressure chronic ulcer of other part of right lower leg with fat layer exposed; L97.828 Non-pressure chronic ulcer of other part of left lower leg with other specified severity; E11.51 Type 2 diabetes mellitus with diabetic peripheral angiopathy without gangrene; I25.10 Atherosclerotic heart disease of native coronary artery without angina pectoris; L28.1 Prurigo nodularis; L03.90 Cellulitis, unspecified; I48.91 Unspecified atrial fibrillation; I10 Essential (primary) hypertension; J30.2 Other seasonal allergic rhinitis; F41.9 Anxiety disorder, unspecified; Z87.891 Personal history of nicotine dependence; Z95.4 Presence of other heart-valve replacement; Z95.5 Presence of coronary angioplasty implant and graft; Z96.653 Presence of artificial knee joint, bilateral; Z99.2 Dependence on renal dialysis ==

== ENCOUNTER → 2023-06-09 | Outpatient (CLI) | payer MEDICARE | END | disposition home or self-care (01) | LOC: WOUNDCARE 01:17 | PROVIDERS: ATTEND Nurse Practitioner Family | DX: E11.622 Type 2 diabetes mellitus with other skin ulcer (principal); L97.812 Non-pressure chronic ulcer of other part of right lower leg with fat layer exposed; L97.822 Non-pressure chronic ulcer of other part of left lower leg with fat layer exposed; E11.51 Type 2 diabetes mellitus with diabetic peripheral angiopathy without gangrene; I25.10 Atherosclerotic heart disease of native coronary artery without angina pectoris; J30.2 Other seasonal allergic rhinitis; I48.91 Unspecified atrial fibrillation; I10 Essential (primary) hypertension; L03.90 Cellulitis, unspecified; L28.1 Prurigo nodularis; F41.9 Anxiety disorder, unspecified; Z95.4 Presence of other heart-valve replacement; Z95.5 Presence of coronary angioplasty implant and graft; Z96.653 Presence of artificial knee joint, bilateral; Z99.2 Dependence on renal dialysis ==

== ENCOUNTER → 2023-06-13 | Outpatient (CLI) | payer MEDICARE | END | disposition home or self-care (01) | LOC: WOUNDCARE 02:09 | PROVIDERS: ATTEND Nurse Practitioner Family | DX: E11.622 Type 2 diabetes mellitus with other skin ulcer (principal); L97.812 Non-pressure chronic ulcer of other part of right lower leg with fat layer exposed; L97.822 Non-pressure chronic ulcer of other part of left lower leg with fat layer exposed; E11.51 Type 2 diabetes mellitus with diabetic peripheral angiopathy without gangrene; I25.10 Atherosclerotic heart disease of native coronary artery without angina pectoris; L28.1 Prurigo nodularis; L03.90 Cellulitis, unspecified; I48.91 Unspecified atrial fibrillation; I10 Essential (primary) hypertension; J30.2 Other seasonal allergic rhinitis; F41.9 Anxiety disorder, unspecified; Z87.891 Personal history of nicotine dependence; Z95.4 Presence of other heart-valve replacement; Z95.5 Presence of coronary angioplasty implant and graft; Z96.653 Presence of artificial knee joint, bilateral; Z99.2 Dependence on renal dialysis ==

== ENCOUNTER → 2023-06-20 | Outpatient (CLI) | payer MEDICARE | END | disposition home or self-care (01) | LOC: WOUNDCARE 02:07 | PROVIDERS: ATTEND Nurse Practitioner Family | DX: E11.622 Type 2 diabetes mellitus with other skin ulcer (principal); L97.812 Non-pressure chronic ulcer of other part of right lower leg with fat layer exposed; L97.822 Non-pressure chronic ulcer of other part of left lower leg with fat layer exposed; I25.10 Atherosclerotic heart disease of native coronary artery without angina pectoris; I10 Essential (primary) hypertension; E11.51 Type 2 diabetes mellitus with diabetic peripheral angiopathy without gangrene; L28.1 Prurigo nodularis; L03.90 Cellulitis, unspecified; I48.91 Unspecified atrial fibrillation; J30.2 Other seasonal allergic rhinitis; F41.9 Anxiety disorder, unspecified; Z87.891 Personal history of nicotine dependence; Z95.4 Presence of other heart-valve replacement; Z95.5 Presence of coronary angioplasty implant and graft; Z96.653 Presence of artificial knee joint, bilateral; Z99.2 Dependence on renal dialysis ==

== ENCOUNTER → 2023-06-27 | Outpatient (CLI) | payer MEDICARE | END | disposition home or self-care (01) | LOC: WOUNDCARE 01:57 | PROVIDERS: ATTEND Nurse Practitioner Family | DX: E11.622 Type 2 diabetes mellitus with other skin ulcer (principal); L97.812 Non-pressure chronic ulcer of other part of right lower leg with fat layer exposed; L97.822 Non-pressure chronic ulcer of other part of left lower leg with fat layer exposed; E11.51 Type 2 diabetes mellitus with diabetic peripheral angiopathy without gangrene; I25.10 Atherosclerotic heart disease of native coronary artery without angina pectoris; L28.1 Prurigo nodularis; I10 Essential (primary) hypertension; L03.90 Cellulitis, unspecified; I48.91 Unspecified atrial fibrillation; J30.2 Other seasonal allergic rhinitis; F41.9 Anxiety disorder, unspecified; Z87.891 Personal history of nicotine dependence; Z95.4 Presence of other heart-valve replacement; Z95.5 Presence of coronary angioplasty implant and graft; Z96.653 Presence of artificial knee joint, bilateral; Z99.2 Dependence on renal dialysis ==

== ENCOUNTER → 2023-07-04 | Outpatient (CLI) | payer MEDICARE | END | disposition home or self-care (01) | LOC: WOUNDCARE 02:17 | PROVIDERS: ATTEND Nurse Practitioner Family | DX: E11.622 Type 2 diabetes mellitus with other skin ulcer (principal); L97.812 Non-pressure chronic ulcer of other part of right lower leg with fat layer exposed; L97.828 Non-pressure chronic ulcer of other part of left lower leg with other specified severity; E11.51 Type 2 diabetes mellitus with diabetic peripheral angiopathy without gangrene; L28.1 Prurigo nodularis; L03.90 Cellulitis, unspecified; I25.10 Atherosclerotic heart disease of native coronary artery without angina pectoris; I10 Essential (primary) hypertension; I48.91 Unspecified atrial fibrillation; J30.2 Other seasonal allergic rhinitis; F41.9 Anxiety disorder, unspecified; Z87.891 Personal history of nicotine dependence; Z95.4 Presence of other heart-valve replacement; Z95.5 Presence of coronary angioplasty implant and graft; Z96.653 Presence of artificial knee joint, bilateral; Z99.2 Dependence on renal dialysis ==

== ENCOUNTER → 2023-07-21 | Outpatient (CLI) | payer MEDICARE | END | disposition home or self-care (01) | LOC: WOUNDCARE 03:54 | PROVIDERS: ATTEND Nurse Practitioner Family | DX: E11.622 Type 2 diabetes mellitus with other skin ulcer (principal); L97.822 Non-pressure chronic ulcer of other part of left lower leg with fat layer exposed; L97.812 Non-pressure chronic ulcer of other part of right lower leg with fat layer exposed; E11.51 Type 2 diabetes mellitus with diabetic peripheral angiopathy without gangrene; I96 Gangrene, not elsewhere classified; L28.1 Prurigo nodularis; L03.90 Cellulitis, unspecified; I10 Essential (primary) hypertension; I25.10 Atherosclerotic heart disease of native coronary artery without angina pectoris; J30.2 Other seasonal allergic rhinitis; F41.9 Anxiety disorder, unspecified; Z95.818 Presence of other cardiac implants and grafts; Z87.891 Personal history of nicotine dependence ==

== ENCOUNTER → 2023-07-29 | Outpatient (CLI) | payer MEDICARE | END | disposition home or self-care (01) | LOC: WOUNDCARE 03:31 | PROVIDERS: ATTEND Nurse Practitioner Family | DX: E11.622 Type 2 diabetes mellitus with other skin ulcer (principal); L97.812 Non-pressure chronic ulcer of other part of right lower leg with fat layer exposed; E11.51 Type 2 diabetes mellitus with diabetic peripheral angiopathy without gangrene; L97.821 Non-pressure chronic ulcer of other part of left lower leg limited to breakdown of skin; L28.1 Prurigo nodularis; L03.90 Cellulitis, unspecified; J30.2 Other seasonal allergic rhinitis; I25.10 Atherosclerotic heart disease of native coronary artery without angina pectoris; I10 Essential (primary) hypertension; I48.91 Unspecified atrial fibrillation; F41.9 Anxiety disorder, unspecified; Z95.818 Presence of other cardiac implants and grafts; Z87.891 Personal history of nicotine dependence ==

== ENCOUNTER → 2023-08-05 | Outpatient (CLI) | payer MEDICARE | END | disposition home or self-care (01) | LOC: WOUNDCARE 07-20 03:39 | PROVIDERS: ATTEND Nurse Practitioner Family | DX: E11.622 Type 2 diabetes mellitus with other skin ulcer (principal); L97.812 Non-pressure chronic ulcer of other part of right lower leg with fat layer exposed; L97.828 Non-pressure chronic ulcer of other part of left lower leg with other specified severity; E11.51 Type 2 diabetes mellitus with diabetic peripheral angiopathy without gangrene; I25.10 Atherosclerotic heart disease of native coronary artery without angina pectoris; L28.1 Prurigo nodularis; L03.90 Cellulitis, unspecified; I10 Essential (primary) hypertension; I48.91 Unspecified atrial fibrillation; J30.2 Other seasonal allergic rhinitis; F41.9 Anxiety disorder, unspecified; Z87.891 Personal history of nicotine dependence; Z95.4 Presence of other heart-valve replacement; Z95.5 Presence of coronary angioplasty implant and graft; Z96.653 Presence of artificial knee joint, bilateral; Z99.2 Dependence on renal dialysis ==

== ENCOUNTER → 2023-08-25 | Outpatient (CLI) | payer MEDICARE | END | disposition home or self-care (01) | LOC: WOUNDCARE 03:14 | PROVIDERS: ATTEND Nurse Practitioner Family | DX: E11.621 Type 2 diabetes mellitus with foot ulcer (principal); L97.812 Non-pressure chronic ulcer of other part of right lower leg with fat layer exposed; L97.821 Non-pressure chronic ulcer of other part of left lower leg limited to breakdown of skin; E11.51 Type 2 diabetes mellitus with diabetic peripheral angiopathy without gangrene; I25.10 Atherosclerotic heart disease of native coronary artery without angina pectoris; L28.1 Prurigo nodularis; L03.90 Cellulitis, unspecified; J30.2 Other seasonal allergic rhinitis; I48.91 Unspecified atrial fibrillation; F41.9 Anxiety disorder, unspecified; Z95.818 Presence of other cardiac implants and grafts; Z87.891 Personal history of nicotine dependence ==

== ENCOUNTER → 2023-09-08 | Outpatient (CLI) | payer MEDICARE | LOC: WOUNDCARE 01:57 | PROVIDERS: ATTEND Nurse Practitioner Family | DX: E11.622 Type 2 diabetes mellitus with other skin ulcer (principal); L97.812 Non-pressure chronic ulcer of other part of right lower leg with fat layer exposed; L97.821 Non-pressure chronic ulcer of other part of left lower leg limited to breakdown of skin; E11.51 Type 2 diabetes mellitus with diabetic peripheral angiopathy without gangrene; I25.10 Atherosclerotic heart disease of native coronary artery without angina pectoris; L28.1 Prurigo nodularis; L03.90 Cellulitis, unspecified; I87.8 Other specified disorders of veins; I10 Essential (primary) hypertension; J30.2 Other seasonal allergic rhinitis; F41.9 Anxiety disorder, unspecified; I48.91 Unspecified atrial fibrillation; Z99.2 Dependence on renal dialysis; Z95.818 Presence of other cardiac implants and grafts; Z87.891 Personal history of nicotine dependence; Z79.01 Long term (current) use of anticoagulants ==

== ENCOUNTER → 2023-09-15 | Outpatient (CLI) | payer MEDICARE | END | disposition home or self-care (01) | LOC: WOUNDCARE 03:06 | PROVIDERS: ATTEND Nurse Practitioner Family | DX: E11.622 Type 2 diabetes mellitus with other skin ulcer (principal); L97.812 Non-pressure chronic ulcer of other part of right lower leg with fat layer exposed; L97.821 Non-pressure chronic ulcer of other part of left lower leg limited to breakdown of skin; E11.51 Type 2 diabetes mellitus with diabetic peripheral angiopathy without gangrene; I25.10 Atherosclerotic heart disease of native coronary artery without angina pectoris; L28.1 Prurigo nodularis; L03.90 Cellulitis, unspecified; I10 Essential (primary) hypertension; I48.91 Unspecified atrial fibrillation; J30.2 Other seasonal allergic rhinitis; F41.9 Anxiety disorder, unspecified; Z79.01 Long term (current) use of anticoagulants; Z99.2 Dependence on renal dialysis; Z95.818 Presence of other cardiac implants and grafts; Z87.891 Personal history of nicotine dependence ==

== ENCOUNTER 2023-10-28 13:29 | Emergency (ER) | payer MEDICARE ==
[~2023-10-28] VITALS: Ht 160 cm; Wt 87.1 kg
[2023-10-28 14:10] VITALS: BP 121/54
[2023-10-28] MEDS ORDERED: PREDNISONE20 M1 PO (14:33)
== END 2023-10-28 14:45 | disposition home or self-care (01) ==
LOC: ED 13:29
DX: R21 Rash and other nonspecific skin eruption (principal); E78.5 Hyperlipidemia, unspecified; E11.22 Type 2 diabetes mellitus with diabetic chronic kidney disease; I12.0 Hypertensive chronic kidney disease with stage 5 chronic kidney disease or end stage renal disease; N18.6 End stage renal disease; Z87.442 Personal history of urinary calculi; Z88.5 Allergy status to narcotic agent; Z96.651 Presence of right artificial knee joint; Z98.890 Other specified postprocedural states

== ENCOUNTER → 2023-11-01 | Outpatient (CLI) | payer MEDICARE | END | disposition home or self-care (01) | LOC: WOUNDCARE 10:23 | PROVIDERS: ATTEND Nurse Practitioner Family | DX: S81.812A Laceration without foreign body, left lower leg, initial encounter (principal); S81.811A Laceration without foreign body, right lower leg, initial encounter; I10 Essential (primary) hypertension; I25.10 Atherosclerotic heart disease of native coronary artery without angina pectoris; L28.1 Prurigo nodularis; E11.622 Type 2 diabetes mellitus with other skin ulcer; L98.491 Non-pressure chronic ulcer of skin of other sites limited to breakdown of skin; I48.91 Unspecified atrial fibrillation; Z99.2 Dependence on renal dialysis; Z95.818 Presence of other cardiac implants and grafts; Z87.891 Personal history of nicotine dependence; Z79.01 Long term (current) use of anticoagulants; W10.8XXA Fall (on) (from) other stairs and steps, initial encounter; Y93.89 Activity, other specified; Y92.89 Other specified places as the place of occurrence of the external cause; Y99.8 Other external cause status ==

== ENCOUNTER → 2023-11-08 | Outpatient (CLI) | payer MEDICARE | END | disposition home or self-care (01) | LOC: WOUNDCARE 03:05 | PROVIDERS: ATTEND Nurse Practitioner Family | DX: S81.811D Laceration without foreign body, right lower leg, subsequent encounter (principal); S81.812D Laceration without foreign body, left lower leg, subsequent encounter; E11.622 Type 2 diabetes mellitus with other skin ulcer; L98.491 Non-pressure chronic ulcer of skin of other sites limited to breakdown of skin; I10 Essential (primary) hypertension; I25.10 Atherosclerotic heart disease of native coronary artery without angina pectoris; I48.91 Unspecified atrial fibrillation; L28.1 Prurigo nodularis; Z87.891 Personal history of nicotine dependence; Z96.653 Presence of artificial knee joint, bilateral; Z95.2 Presence of prosthetic heart valve; Z95.818 Presence of other cardiac implants and grafts; Z99.2 Dependence on renal dialysis; Z79.01 Long term (current) use of anticoagulants; Z79.899 Other long term (current) drug therapy; W16 Fall, jump or diving into water ==

== ENCOUNTER → 2023-11-17 | Outpatient (CLI) | payer MEDICARE | END | disposition home or self-care (01) | LOC: WOUNDCARE 00:51 | PROVIDERS: ATTEND Nurse Practitioner Family | DX: S81.801D Unspecified open wound, right lower leg, subsequent encounter (principal); S81.812D Laceration without foreign body, left lower leg, subsequent encounter; E11.622 Type 2 diabetes mellitus with other skin ulcer; L98.491 Non-pressure chronic ulcer of skin of other sites limited to breakdown of skin; I10 Essential (primary) hypertension; I25.10 Atherosclerotic heart disease of native coronary artery without angina pectoris; I48.91 Unspecified atrial fibrillation; L28.1 Prurigo nodularis; Z87.891 Personal history of nicotine dependence; Z99.2 Dependence on renal dialysis; Z96.653 Presence of artificial knee joint, bilateral; Z95.2 Presence of prosthetic heart valve; Z95.818 Presence of other cardiac implants and grafts; Z79.01 Long term (current) use of anticoagulants; Z79.899 Other long term (current) drug therapy; W16 Fall, jump or diving into water ==

== ENCOUNTER → 2023-11-24 | Outpatient (CLI) | payer MEDICARE | END | disposition home or self-care (01) | LOC: WOUNDCARE 00:43 | PROVIDERS: ATTEND Nurse Practitioner Family | DX: S81.812D Laceration without foreign body, left lower leg, subsequent encounter (principal); S81.811D Laceration without foreign body, right lower leg, subsequent encounter; E11.622 Type 2 diabetes mellitus with other skin ulcer; L98.491 Non-pressure chronic ulcer of skin of other sites limited to breakdown of skin; I10 Essential (primary) hypertension; I25.10 Atherosclerotic heart disease of native coronary artery without angina pectoris; I48.91 Unspecified atrial fibrillation; L28.1 Prurigo nodularis; L60.2 Onychogryphosis; B35.1 Tinea unguium; Z87.891 Personal history of nicotine dependence; Z99.2 Dependence on renal dialysis; Z95.2 Presence of prosthetic heart valve; Z95.818 Presence of other cardiac implants and grafts; Z79.01 Long term (current) use of anticoagulants; Z79.899 Other long term (current) drug therapy; W16 Fall, jump or diving into water ==

== ENCOUNTER → 2023-11-29 | Outpatient (CLI) | payer MEDICARE | END | disposition home or self-care (01) | LOC: WOUNDCARE 00:41 | PROVIDERS: ATTEND Nurse Practitioner Family | DX: S81.811D Laceration without foreign body, right lower leg, subsequent encounter (principal); S81.812D Laceration without foreign body, left lower leg, subsequent encounter; E11.622 Type 2 diabetes mellitus with other skin ulcer; L98.491 Non-pressure chronic ulcer of skin of other sites limited to breakdown of skin; I10 Essential (primary) hypertension; I25.10 Atherosclerotic heart disease of native coronary artery without angina pectoris; I48.91 Unspecified atrial fibrillation; L28.1 Prurigo nodularis; L60.2 Onychogryphosis; B35.1 Tinea unguium; Z87.891 Personal history of nicotine dependence; Z99.2 Dependence on renal dialysis; Z96.653 Presence of artificial knee joint, bilateral; Z95.2 Presence of prosthetic heart valve; Z95.818 Presence of other cardiac implants and grafts; Z79.01 Long term (current) use of anticoagulants; Z79.899 Other long term (current) drug therapy; W16 Fall, jump or diving into water ==

== ENCOUNTER → 2023-11-30 | Outpatient (CLI) | payer MEDICARE | END | disposition home or self-care (01) | LOC: WOUNDCARE 11:40 | PROVIDERS: ATTEND Nurse Practitioner Family | DX: S81.811D Laceration without foreign body, right lower leg, subsequent encounter (principal); S81.812D Laceration without foreign body, left lower leg, subsequent encounter; B35.1 Tinea unguium; L60.2 Onychogryphosis; L28.1 Prurigo nodularis; E11.9 Type 2 diabetes mellitus without complications; I25.10 Atherosclerotic heart disease of native coronary artery without angina pectoris; I10 Essential (primary) hypertension; I48.91 Unspecified atrial fibrillation; Z99.2 Dependence on renal dialysis; Z87.891 Personal history of nicotine dependence; Z95.4 Presence of other heart-valve replacement; Z95.5 Presence of coronary angioplasty implant and graft; Z96.653 Presence of artificial knee joint, bilateral; X58.XXXD Exposure to other specified factors, subsequent encounter ==

== ENCOUNTER → 2023-12-06 | Outpatient (CLI) | payer MEDICARE | END | disposition home or self-care (01) | LOC: WOUNDCARE 00:43 | PROVIDERS: ATTEND Nurse Practitioner Family | DX: S81.812D Laceration without foreign body, left lower leg, subsequent encounter (principal); S81.811D Laceration without foreign body, right lower leg, subsequent encounter; E11.622 Type 2 diabetes mellitus with other skin ulcer; L98.491 Non-pressure chronic ulcer of skin of other sites limited to breakdown of skin; I10 Essential (primary) hypertension; I48.91 Unspecified atrial fibrillation; I25.10 Atherosclerotic heart disease of native coronary artery without angina pectoris; B35.1 Tinea unguium; L60.2 Onychogryphosis; L28.1 Prurigo nodularis; Z87.891 Personal history of nicotine dependence; Z99.2 Dependence on renal dialysis; Z95.4 Presence of other heart-valve replacement; Z95.818 Presence of other cardiac implants and grafts; Z96.653 Presence of artificial knee joint, bilateral; Z79.01 Long term (current) use of anticoagulants; Z79.899 Other long term (current) drug therapy; X58.XXXD Exposure to other specified factors, subsequent encounter ==

== ENCOUNTER → 2023-12-13 | Outpatient (CLI) | payer MEDICARE | END | disposition home or self-care (01) | LOC: WOUNDCARE 00:57 | PROVIDERS: ATTEND Nurse Practitioner Family | DX: S81.812D Laceration without foreign body, left lower leg, subsequent encounter (principal); S81.811D Laceration without foreign body, right lower leg, subsequent encounter; E11.622 Type 2 diabetes mellitus with other skin ulcer; L98.491 Non-pressure chronic ulcer of skin of other sites limited to breakdown of skin; I10 Essential (primary) hypertension; I48.91 Unspecified atrial fibrillation; I25.10 Atherosclerotic heart disease of native coronary artery without angina pectoris; B35.1 Tinea unguium; L60.2 Onychogryphosis; L28.1 Prurigo nodularis; Z87.891 Personal history of nicotine dependence; Z99.2 Dependence on renal dialysis; Z95.4 Presence of other heart-valve replacement; Z95.818 Presence of other cardiac implants and grafts; Z96.653 Presence of artificial knee joint, bilateral; Z79.01 Long term (current) use of anticoagulants; Z79.899 Other long term (current) drug therapy; X58.XXXD Exposure to other specified factors, subsequent encounter ==

== ENCOUNTER → 2023-12-21 | Outpatient (CLI) | payer MEDICARE | END | disposition home or self-care (01) | LOC: WOUNDCARE 01:32 | PROVIDERS: ATTEND Nurse Practitioner Family | DX: S81.811D Laceration without foreign body, right lower leg, subsequent encounter (principal); S81.812D Laceration without foreign body, left lower leg, subsequent encounter; E11.622 Type 2 diabetes mellitus with other skin ulcer; L98.491 Non-pressure chronic ulcer of skin of other sites limited to breakdown of skin; I10 Essential (primary) hypertension; I48.91 Unspecified atrial fibrillation; B35.1 Tinea unguium; L60.2 Onychogryphosis; L28.1 Prurigo nodularis; Z87.891 Personal history of nicotine dependence; Z99.2 Dependence on renal dialysis; Z95.4 Presence of other heart-valve replacement; Z95.818 Presence of other cardiac implants and grafts; Z96.653 Presence of artificial knee joint, bilateral; Z79.01 Long term (current) use of anticoagulants; Z79.899 Other long term (current) drug therapy; X58.XXXD Exposure to other specified factors, subsequent encounter ==

== ENCOUNTER → 2023-12-29 | Outpatient (CLI) | payer MEDICARE | END | disposition home or self-care (01) | LOC: WOUNDCARE 02:01 | PROVIDERS: ATTEND Nurse Practitioner Family | DX: S81.812D Laceration without foreign body, left lower leg, subsequent encounter (principal); S81.811D Laceration without foreign body, right lower leg, subsequent encounter; E11.622 Type 2 diabetes mellitus with other skin ulcer; L98.491 Non-pressure chronic ulcer of skin of other sites limited to breakdown of skin; I10 Essential (primary) hypertension; I48.91 Unspecified atrial fibrillation; B35.1 Tinea unguium; L60.2 Onychogryphosis; L28.1 Prurigo nodularis; Z87.891 Personal history of nicotine dependence; Z99.2 Dependence on renal dialysis; Z95.4 Presence of other heart-valve replacement; Z95.818 Presence of other cardiac implants and grafts; Z96.653 Presence of artificial knee joint, bilateral; Z79.01 Long term (current) use of anticoagulants; Z79.899 Other long term (current) drug therapy; X58.XXXD Exposure to other specified factors, subsequent encounter ==

== ENCOUNTER → 2024-01-10 | Outpatient (CLI) | payer MEDICARE | END | disposition home or self-care (01) | LOC: WOUNDCARE 12:24 | PROVIDERS: ATTEND Nurse Practitioner Family | DX: S81.812D Laceration without foreign body, left lower leg, subsequent encounter (principal); S81.811D Laceration without foreign body, right lower leg, subsequent encounter; E11.622 Type 2 diabetes mellitus with other skin ulcer; L98.491 Non-pressure chronic ulcer of skin of other sites limited to breakdown of skin; I10 Essential (primary) hypertension; I48.91 Unspecified atrial fibrillation; B35.1 Tinea unguium; L60.2 Onychogryphosis; L28.1 Prurigo nodularis; Z87.891 Personal history of nicotine dependence; Z99.2 Dependence on renal dialysis; Z95.4 Presence of other heart-valve replacement; Z95.818 Presence of other cardiac implants and grafts; Z96.653 Presence of artificial knee joint, bilateral; Z79.01 Long term (current) use of anticoagulants; Z79.899 Other long term (current) drug therapy; X58.XXXD Exposure to other specified factors, subsequent encounter ==

== ENCOUNTER → 2024-01-17 | Outpatient (CLI) | payer MEDICARE | END | disposition home or self-care (01) | LOC: WOUNDCARE 00:33 | PROVIDERS: ATTEND Nurse Practitioner Family | DX: S81.811D Laceration without foreign body, right lower leg, subsequent encounter (principal); S81.812D Laceration without foreign body, left lower leg, subsequent encounter; E11.622 Type 2 diabetes mellitus with other skin ulcer; L98.491 Non-pressure chronic ulcer of skin of other sites limited to breakdown of skin; I10 Essential (primary) hypertension; I48.91 Unspecified atrial fibrillation; B35.1 Tinea unguium; L60.2 Onychogryphosis; L28.1 Prurigo nodularis; Z87.891 Personal history of nicotine dependence; Z99.2 Dependence on renal dialysis; Z95.4 Presence of other heart-valve replacement; Z95.818 Presence of other cardiac implants and grafts; Z96.653 Presence of artificial knee joint, bilateral; Z79.01 Long term (current) use of anticoagulants; Z79.899 Other long term (current) drug therapy; X58.XXXD Exposure to other specified factors, subsequent encounter ==

== ENCOUNTER → 2024-01-24 | Outpatient (CLI) | payer MEDICARE | END | disposition home or self-care (01) | LOC: WOUNDCARE 03:05 | PROVIDERS: ATTEND Nurse Practitioner Family | DX: S81.811D Laceration without foreign body, right lower leg, subsequent encounter (principal); S81.812D Laceration without foreign body, left lower leg, subsequent encounter; E11.622 Type 2 diabetes mellitus with other skin ulcer; L98.491 Non-pressure chronic ulcer of skin of other sites limited to breakdown of skin; I10 Essential (primary) hypertension; I48.91 Unspecified atrial fibrillation; L60.2 Onychogryphosis; B35.1 Tinea unguium; L28.1 Prurigo nodularis; Z87.891 Personal history of nicotine dependence; Z99.2 Dependence on renal dialysis; Z95.4 Presence of other heart-valve replacement; Z95.818 Presence of other cardiac implants and grafts; Z96.653 Presence of artificial knee joint, bilateral; Z79.01 Long term (current) use of anticoagulants; Z79.899 Other long term (current) drug therapy; X58.XXXD Exposure to other specified factors, subsequent encounter ==

== ENCOUNTER 2024-01-28 19:56 | Emergency (ER) | payer MEDICARE ==
[~2024-01-28] VITALS: Ht 160 cm; Wt 87.1 kg
[2024-01-28 20:33] VITALS: BP 136/48
[2024-01-28 22:17] LABS: BASO # 0.1 10*3/uL (0.0-0.1); EOS # 0.1 10*3/uL (0.0-0.4); EOS % 1.8 % (1.0-4.0); HEMATOCRIT 37.1 % (42.0-52.0); MEAN CELL VOLUME 101.6 fl (80.0-94.0); MEAN CORPUSCULAR HGB 33.7 pg (27.0-31.0); MEAN CORPUSCULAR HGB CONC 33.2 g/dl (33.0-37.0); MEAN PLATELET VOLUME 9.8 fl (9.6-12.3); MONO # 0.9 10*3/uL (0.1-1.0); MONO % 13.8 % (3.0-9.0); NEUT # 3.7 10*3/uL (2.3-7.9); NEUT % 54.1 % (47.0-73.0); PLATELET COUNT AUTOMATED 144 10*3/uL (130-400); RED BLOOD COUNT 3.65 10*6/uL (4.50-5.90); RED CELL DISTRI WIDTH 14.7 % (0-14.5); WHITE BLOOD COUNT 6.8 10*3/uL (4.8-10.8)
[2024-01-28 22:37] LABS: POTASSIUM 3.8 mmol/L (3.4-5.1)
[2024-01-28] MEDS ORDERED: AMOX-CLAV 875-1 EACH PO (23:36)
[2024-01-28] MEDS ORDERED: Amoxicillin/Clavulanate Pota 875 MG TAB PO ONE (23:40)
[2024-01-28] MEDS ORDERED: ACETAMINOPHEN 325 MG TAB PO ONE (23:40)
== END 2024-01-28 23:48 | disposition home or self-care (01) ==
LOC: ED 19:56
PROVIDERS: Nurse Practitioner Family
DX: S89.91XA Unspecified injury of right lower leg, initial encounter (principal); J18.9 Pneumonia, unspecified organism; I25.10 Atherosclerotic heart disease of native coronary artery without angina pectoris; E11.22 Type 2 diabetes mellitus with diabetic chronic kidney disease; I12.0 Hypertensive chronic kidney disease with stage 5 chronic kidney disease or end stage renal disease; N18.6 End stage renal disease; Z99.2 Dependence on renal dialysis; Z87.442 Personal history of urinary calculi; Z88.5 Allergy status to narcotic agent; Z96.651 Presence of right artificial knee joint; Z98.890 Other specified postprocedural states; W22.8XXA Striking against or struck by other objects, initial encounter; Y93.89 Activity, other specified; Y92.89 Other specified places as the place of occurrence of the external cause; Y99.8 Other external cause status

== ENCOUNTER → 2024-02-02 | Outpatient (CLI) | payer MEDICARE ==
[~2024-02-02] MED LIST changes: +AMOX-CLAV 875-1 EACH PO
== END | disposition home or self-care (01) ==
LOC: WOUNDCARE 03:36
PROVIDERS: ATTEND Nurse Practitioner Family
DX: S81.811D Laceration without foreign body, right lower leg, subsequent encounter (principal); S81.812D Laceration without foreign body, left lower leg, subsequent encounter; E11.622 Type 2 diabetes mellitus with other skin ulcer; L98.491 Non-pressure chronic ulcer of skin of other sites limited to breakdown of skin; I10 Essential (primary) hypertension; I48.91 Unspecified atrial fibrillation; L60.2 Onychogryphosis; B35.1 Tinea unguium; L28.1 Prurigo nodularis; Z87.891 Personal history of nicotine dependence; Z99.2 Dependence on renal dialysis; Z95.4 Presence of other heart-valve replacement; Z95.818 Presence of other cardiac implants and grafts; Z96.653 Presence of artificial knee joint, bilateral; Z79.01 Long term (current) use of anticoagulants; Z79.899 Other long term (current) drug therapy; X58.XXXD Exposure to other specified factors, subsequent encounter

== ENCOUNTER → 2024-02-13 | Outpatient (CLI) | payer MEDICARE | END | disposition home or self-care (01) | LOC: WOUNDCARE 01:23 | PROVIDERS: ATTEND Nurse Practitioner Primary Care | DX: S81.811D Laceration without foreign body, right lower leg, subsequent encounter (principal); S81.812D Laceration without foreign body, left lower leg, subsequent encounter; E11.622 Type 2 diabetes mellitus with other skin ulcer; L98.491 Non-pressure chronic ulcer of skin of other sites limited to breakdown of skin; I48.91 Unspecified atrial fibrillation; L60.2 Onychogryphosis; B35.1 Tinea unguium; L28.1 Prurigo nodularis; Z87.891 Personal history of nicotine dependence; Z99.2 Dependence on renal dialysis; Z95.4 Presence of other heart-valve replacement; Z95.818 Presence of other cardiac implants and grafts; Z96.653 Presence of artificial knee joint, bilateral; Z79.01 Long term (current) use of anticoagulants; Z79.899 Other long term (current) drug therapy; X58.XXXD Exposure to other specified factors, subsequent encounter ==

== ENCOUNTER → 2024-02-21 | Outpatient (CLI) | payer MEDICARE | END | disposition home or self-care (01) | LOC: WOUNDCARE 02:19 | PROVIDERS: ATTEND Nurse Practitioner Family | DX: S81.811D Laceration without foreign body, right lower leg, subsequent encounter (principal); S81.812D Laceration without foreign body, left lower leg, subsequent encounter; E11.622 Type 2 diabetes mellitus with other skin ulcer; L98.491 Non-pressure chronic ulcer of skin of other sites limited to breakdown of skin; L60.2 Onychogryphosis; I48.91 Unspecified atrial fibrillation; I87.2 Venous insufficiency (chronic) (peripheral); B35.1 Tinea unguium; L28.1 Prurigo nodularis; Z87.891 Personal history of nicotine dependence; Z99.2 Dependence on renal dialysis; Z95.4 Presence of other heart-valve replacement; Z95.818 Presence of other cardiac implants and grafts; Z96.653 Presence of artificial knee joint, bilateral; Z79.01 Long term (current) use of anticoagulants; Z79.899 Other long term (current) drug therapy; X58.XXXD Exposure to other specified factors, subsequent encounter ==

== ENCOUNTER → 2024-02-28 | Outpatient (CLI) | payer MEDICARE | END | disposition home or self-care (01) | LOC: WOUNDCARE 00:01 | PROVIDERS: ATTEND Nurse Practitioner Family | DX: S81.811D Laceration without foreign body, right lower leg, subsequent encounter (principal); S81.812D Laceration without foreign body, left lower leg, subsequent encounter; E11.622 Type 2 diabetes mellitus with other skin ulcer; L98.491 Non-pressure chronic ulcer of skin of other sites limited to breakdown of skin; L60.2 Onychogryphosis; R21 Rash and other nonspecific skin eruption; I48.91 Unspecified atrial fibrillation; I87.2 Venous insufficiency (chronic) (peripheral); B35.1 Tinea unguium; L28.1 Prurigo nodularis; Z87.891 Personal history of nicotine dependence; Z99.2 Dependence on renal dialysis; Z95.4 Presence of other heart-valve replacement; Z95.818 Presence of other cardiac implants and grafts; Z96.653 Presence of artificial knee joint, bilateral; Z79.01 Long term (current) use of anticoagulants; Z79.899 Other long term (current) drug therapy; X58.XXXD Exposure to other specified factors, subsequent encounter ==

== ENCOUNTER → 2024-03-08 | Outpatient (CLI) | payer MEDICARE | END | disposition home or self-care (01) | LOC: WOUNDCARE 02:42 | PROVIDERS: ATTEND Nurse Practitioner Family | DX: S81.811D Laceration without foreign body, right lower leg, subsequent encounter (principal); S81.812D Laceration without foreign body, left lower leg, subsequent encounter; E11.622 Type 2 diabetes mellitus with other skin ulcer; L98.491 Non-pressure chronic ulcer of skin of other sites limited to breakdown of skin; L60.2 Onychogryphosis; R21 Rash and other nonspecific skin eruption; I48.91 Unspecified atrial fibrillation; I87.2 Venous insufficiency (chronic) (peripheral); B35.1 Tinea unguium; L28.1 Prurigo nodularis; Z87.891 Personal history of nicotine dependence; Z99.2 Dependence on renal dialysis; Z95.4 Presence of other heart-valve replacement; Z95.818 Presence of other cardiac implants and grafts; Z96.653 Presence of artificial knee joint, bilateral; Z79.01 Long term (current) use of anticoagulants; Z79.899 Other long term (current) drug therapy; X58.XXXD Exposure to other specified factors, subsequent encounter ==

== ENCOUNTER → 2024-03-13 | Outpatient (CLI) | payer MEDICARE | END | disposition home or self-care (01) | LOC: WOUNDCARE 01:51 | PROVIDERS: ATTEND Nurse Practitioner Family | DX: S81.811D Laceration without foreign body, right lower leg, subsequent encounter (principal); S81.812D Laceration without foreign body, left lower leg, subsequent encounter; E11.622 Type 2 diabetes mellitus with other skin ulcer; L98.491 Non-pressure chronic ulcer of skin of other sites limited to breakdown of skin; R21 Rash and other nonspecific skin eruption; L60.2 Onychogryphosis; I48.91 Unspecified atrial fibrillation; I87.2 Venous insufficiency (chronic) (peripheral); B35.1 Tinea unguium; L28.1 Prurigo nodularis; Z87.891 Personal history of nicotine dependence; Z99.2 Dependence on renal dialysis; Z95.4 Presence of other heart-valve replacement; Z95.818 Presence of other cardiac implants and grafts; Z96.653 Presence of artificial knee joint, bilateral; Z79.01 Long term (current) use of anticoagulants; Z79.899 Other long term (current) drug therapy; X58.XXXD Exposure to other specified factors, subsequent encounter ==

== ENCOUNTER → 2024-03-22 | Outpatient (CLI) | payer MEDICARE | END | disposition home or self-care (01) | LOC: WOUNDCARE 03-21 01:03 | PROVIDERS: ATTEND Nurse Practitioner Family | DX: S81.811D Laceration without foreign body, right lower leg, subsequent encounter (principal); S81.812D Laceration without foreign body, left lower leg, subsequent encounter; E11.622 Type 2 diabetes mellitus with other skin ulcer; L98.491 Non-pressure chronic ulcer of skin of other sites limited to breakdown of skin; R21 Rash and other nonspecific skin eruption; L60.2 Onychogryphosis; I48.91 Unspecified atrial fibrillation; I87.2 Venous insufficiency (chronic) (peripheral); B35.1 Tinea unguium; L28.1 Prurigo nodularis; Z87.891 Personal history of nicotine dependence; Z99.2 Dependence on renal dialysis; Z95.4 Presence of other heart-valve replacement; Z95.818 Presence of other cardiac implants and grafts; Z96.653 Presence of artificial knee joint, bilateral; Z79.01 Long term (current) use of anticoagulants; Z79.899 Other long term (current) drug therapy; X58.XXXD Exposure to other specified factors, subsequent encounter ==

== ENCOUNTER → 2024-03-29 | Outpatient (CLI) | payer MEDICARE | END | disposition home or self-care (01) | LOC: WOUNDCARE 00:48 | PROVIDERS: ATTEND Nurse Practitioner Family | DX: S81.811D Laceration without foreign body, right lower leg, subsequent encounter (principal); S81.812D Laceration without foreign body, left lower leg, subsequent encounter; L60.2 Onychogryphosis; B35.1 Tinea unguium; I11.0 Hypertensive heart disease with heart failure; I50.9 Heart failure, unspecified; L28.1 Prurigo nodularis; I87.2 Venous insufficiency (chronic) (peripheral); I25.10 Atherosclerotic heart disease of native coronary artery without angina pectoris; I48.91 Unspecified atrial fibrillation; Z79.01 Long term (current) use of anticoagulants; Z87.891 Personal history of nicotine dependence; Z95.4 Presence of other heart-valve replacement; Z95.1 Presence of aortocoronary bypass graft; Z96.653 Presence of artificial knee joint, bilateral; Z99.2 Dependence on renal dialysis; X58.XXXD Exposure to other specified factors, subsequent encounter ==

== ENCOUNTER → 2024-04-05 | Outpatient (CLI) | payer MEDICARE | END | disposition home or self-care (01) | LOC: WOUNDCARE 03:35 | PROVIDERS: ATTEND Nurse Practitioner Family | DX: S81.811D Laceration without foreign body, right lower leg, subsequent encounter (principal); S81.812D Laceration without foreign body, left lower leg, subsequent encounter; E11.622 Type 2 diabetes mellitus with other skin ulcer; L98.491 Non-pressure chronic ulcer of skin of other sites limited to breakdown of skin; R21 Rash and other nonspecific skin eruption; L60.2 Onychogryphosis; I48.91 Unspecified atrial fibrillation; I87.2 Venous insufficiency (chronic) (peripheral); B35.1 Tinea unguium; L28.1 Prurigo nodularis; Z87.891 Personal history of nicotine dependence; Z99.2 Dependence on renal dialysis; Z95.4 Presence of other heart-valve replacement; Z95.818 Presence of other cardiac implants and grafts; Z96.653 Presence of artificial knee joint, bilateral; Z79.01 Long term (current) use of anticoagulants; Z79.899 Other long term (current) drug therapy; X58.XXXD Exposure to other specified factors, subsequent encounter ==

== ENCOUNTER → 2024-04-10 | Outpatient (CLI) | payer MEDICARE | END | disposition home or self-care (01) | LOC: WOUNDCARE 10:00 | PROVIDERS: ATTEND Nurse Practitioner Family | DX: S81.811D Laceration without foreign body, right lower leg, subsequent encounter (principal); S81.812D Laceration without foreign body, left lower leg, subsequent encounter; E11.622 Type 2 diabetes mellitus with other skin ulcer; L98.491 Non-pressure chronic ulcer of skin of other sites limited to breakdown of skin; R21 Rash and other nonspecific skin eruption; L60.2 Onychogryphosis; I48.91 Unspecified atrial fibrillation; I87.2 Venous insufficiency (chronic) (peripheral); B35.1 Tinea unguium; L28.1 Prurigo nodularis; Z87.891 Personal history of nicotine dependence; Z99.2 Dependence on renal dialysis; Z95.4 Presence of other heart-valve replacement; Z95.818 Presence of other cardiac implants and grafts; Z96.653 Presence of artificial knee joint, bilateral; Z79.01 Long term (current) use of anticoagulants; Z79.899 Other long term (current) drug therapy; X58.XXXD Exposure to other specified factors, subsequent encounter ==

== ENCOUNTER → 2024-04-17 | Outpatient (CLI) | payer MEDICARE | END | disposition home or self-care (01) | LOC: WOUNDCARE 01:42 | PROVIDERS: ATTEND Nurse Practitioner Family | DX: S81.811D Laceration without foreign body, right lower leg, subsequent encounter (principal); S81.812D Laceration without foreign body, left lower leg, subsequent encounter; E11.622 Type 2 diabetes mellitus with other skin ulcer; L98.491 Non-pressure chronic ulcer of skin of other sites limited to breakdown of skin; R21 Rash and other nonspecific skin eruption; L60.2 Onychogryphosis; I48.91 Unspecified atrial fibrillation; I87.2 Venous insufficiency (chronic) (peripheral); B35.1 Tinea unguium; L28.1 Prurigo nodularis; Z87.891 Personal history of nicotine dependence; Z99.2 Dependence on renal dialysis; Z95.4 Presence of other heart-valve replacement; Z95.818 Presence of other cardiac implants and grafts; Z96.653 Presence of artificial knee joint, bilateral; Z79.01 Long term (current) use of anticoagulants; Z79.899 Other long term (current) drug therapy; X58.XXXD Exposure to other specified factors, subsequent encounter ==

== ENCOUNTER → 2024-04-23 | Outpatient (CLI) | payer MEDICARE | END | disposition home or self-care (01) | LOC: WOUNDCARE 14:30 | PROVIDERS: ATTEND Nurse Practitioner Family | DX: S81.811D Laceration without foreign body, right lower leg, subsequent encounter (principal); S81.812D Laceration without foreign body, left lower leg, subsequent encounter; E11.622 Type 2 diabetes mellitus with other skin ulcer; L98.491 Non-pressure chronic ulcer of skin of other sites limited to breakdown of skin; R21 Rash and other nonspecific skin eruption; L60.2 Onychogryphosis; I48.91 Unspecified atrial fibrillation; I87.2 Venous insufficiency (chronic) (peripheral); B35.1 Tinea unguium; L28.1 Prurigo nodularis; Z87.891 Personal history of nicotine dependence; Z99.2 Dependence on renal dialysis; Z95.4 Presence of other heart-valve replacement; Z95.818 Presence of other cardiac implants and grafts; Z96.653 Presence of artificial knee joint, bilateral; Z79.01 Long term (current) use of anticoagulants; Z79.899 Other long term (current) drug therapy; X58.XXXD Exposure to other specified factors, subsequent encounter ==

== ENCOUNTER → 2024-05-01 | Outpatient (CLI) | payer MEDICARE | END | disposition home or self-care (01) | LOC: WOUNDCARE 01:01 | PROVIDERS: ATTEND Nurse Practitioner Family | DX: S81.811D Laceration without foreign body, right lower leg, subsequent encounter (principal); S81.812D Laceration without foreign body, left lower leg, subsequent encounter; L60.2 Onychogryphosis; B35.1 Tinea unguium; I87.2 Venous insufficiency (chronic) (peripheral); I25.10 Atherosclerotic heart disease of native coronary artery without angina pectoris; I10 Essential (primary) hypertension; I48.91 Unspecified atrial fibrillation; L28.1 Prurigo nodularis; Z87.891 Personal history of nicotine dependence; Z79.01 Long term (current) use of anticoagulants; Z95.4 Presence of other heart-valve replacement; Z95.5 Presence of coronary angioplasty implant and graft; Z96.653 Presence of artificial knee joint, bilateral; Z99.2 Dependence on renal dialysis; X58.XXXD Exposure to other specified factors, subsequent encounter ==

== ENCOUNTER → 2024-05-04 | Outpatient (CLI) | payer MEDICARE | END | disposition home or self-care (01) | LOC: WOUNDCARE 02:56 | PROVIDERS: ATTEND Nurse Practitioner Family | DX: S81.811D Laceration without foreign body, right lower leg, subsequent encounter (principal); S81.812D Laceration without foreign body, left lower leg, subsequent encounter; E11.622 Type 2 diabetes mellitus with other skin ulcer; L98.491 Non-pressure chronic ulcer of skin of other sites limited to breakdown of skin; R21 Rash and other nonspecific skin eruption; L60.2 Onychogryphosis; I48.91 Unspecified atrial fibrillation; I87.2 Venous insufficiency (chronic) (peripheral); B35.1 Tinea unguium; L28.1 Prurigo nodularis; Z87.891 Personal history of nicotine dependence; Z99.2 Dependence on renal dialysis; Z95.4 Presence of other heart-valve replacement; Z95.818 Presence of other cardiac implants and grafts; Z96.653 Presence of artificial knee joint, bilateral; Z79.01 Long term (current) use of anticoagulants; Z79.899 Other long term (current) drug therapy; X58.XXXD Exposure to other specified factors, subsequent encounter ==

== ENCOUNTER → 2024-05-10 | Outpatient (CLI) | payer MEDICARE | END | disposition home or self-care (01) | LOC: WOUNDCARE 00:56 | PROVIDERS: ATTEND Nurse Practitioner Family | DX: S81.801D Unspecified open wound, right lower leg, subsequent encounter (principal); E11.622 Type 2 diabetes mellitus with other skin ulcer; L97.812 Non-pressure chronic ulcer of other part of right lower leg with fat layer exposed; R21 Rash and other nonspecific skin eruption; B35.1 Tinea unguium; L28.1 Prurigo nodularis; I87.2 Venous insufficiency (chronic) (peripheral); L60.2 Onychogryphosis; I10 Essential (primary) hypertension; I48.91 Unspecified atrial fibrillation; I25.10 Atherosclerotic heart disease of native coronary artery without angina pectoris; Z79.01 Long term (current) use of anticoagulants; Z87.891 Personal history of nicotine dependence; Z95.4 Presence of other heart-valve replacement; Z95.5 Presence of coronary angioplasty implant and graft; Z96.653 Presence of artificial knee joint, bilateral; Z99.2 Dependence on renal dialysis; X58.XXXD Exposure to other specified factors, subsequent encounter ==

== ENCOUNTER → 2024-05-16 | Outpatient (CLI) | payer MEDICARE | END | disposition home or self-care (01) | LOC: WOUNDCARE 02:24 | PROVIDERS: ATTEND Nurse Practitioner Family | DX: S81.801D Unspecified open wound, right lower leg, subsequent encounter (principal); E11.622 Type 2 diabetes mellitus with other skin ulcer; L98.491 Non-pressure chronic ulcer of skin of other sites limited to breakdown of skin; R21 Rash and other nonspecific skin eruption; L60.2 Onychogryphosis; I48.91 Unspecified atrial fibrillation; I87.2 Venous insufficiency (chronic) (peripheral); L28.1 Prurigo nodularis; B35.1 Tinea unguium; Z87.891 Personal history of nicotine dependence; Z99.2 Dependence on renal dialysis; Z95.4 Presence of other heart-valve replacement; Z95.818 Presence of other cardiac implants and grafts; Z96.653 Presence of artificial knee joint, bilateral; Z79.02 Long term (current) use of antithrombotics/antiplatelets; Z79.899 Other long term (current) drug therapy; X58.XXXD Exposure to other specified factors, subsequent encounter ==

== ENCOUNTER → 2024-05-23 | Outpatient (CLI) | payer MEDICARE | END | disposition home or self-care (01) | LOC: WOUNDCARE 02:13 | PROVIDERS: ATTEND Nurse Practitioner Family | DX: S81.801D Unspecified open wound, right lower leg, subsequent encounter (principal); E11.622 Type 2 diabetes mellitus with other skin ulcer; L98.491 Non-pressure chronic ulcer of skin of other sites limited to breakdown of skin; R21 Rash and other nonspecific skin eruption; L60.2 Onychogryphosis; I48.91 Unspecified atrial fibrillation; I87.2 Venous insufficiency (chronic) (peripheral); B35.1 Tinea unguium; L28.1 Prurigo nodularis; Z87.891 Personal history of nicotine dependence; Z99.2 Dependence on renal dialysis; Z95.4 Presence of other heart-valve replacement; Z95.818 Presence of other cardiac implants and grafts; Z96.653 Presence of artificial knee joint, bilateral; Z79.01 Long term (current) use of anticoagulants; Z79.899 Other long term (current) drug therapy; X58.XXXD Exposure to other specified factors, subsequent encounter ==

== ENCOUNTER → 2024-05-29 | Outpatient (CLI) | payer MEDICARE | END | disposition home or self-care (01) | LOC: WOUNDCARE 05:13 | PROVIDERS: ATTEND Nurse Practitioner Family | DX: S81.801D Unspecified open wound, right lower leg, subsequent encounter (principal); R21 Rash and other nonspecific skin eruption; L28.1 Prurigo nodularis; B35.1 Tinea unguium; I25.10 Atherosclerotic heart disease of native coronary artery without angina pectoris; I87.2 Venous insufficiency (chronic) (peripheral); I48.91 Unspecified atrial fibrillation; I10 Essential (primary) hypertension; E11.9 Type 2 diabetes mellitus without complications; Z79.01 Long term (current) use of anticoagulants; Z95.4 Presence of other heart-valve replacement; Z96.653 Presence of artificial knee joint, bilateral; Z95.5 Presence of coronary angioplasty implant and graft; Z99.2 Dependence on renal dialysis; X58.XXXD Exposure to other specified factors, subsequent encounter ==

== ENCOUNTER → 2024-06-05 | Outpatient (CLI) | payer MEDICARE | END | disposition home or self-care (01) | LOC: WOUNDCARE 00:54 | PROVIDERS: ATTEND Nurse Practitioner Family | DX: S81.801D Unspecified open wound, right lower leg, subsequent encounter (principal); E11.622 Type 2 diabetes mellitus with other skin ulcer; L98.491 Non-pressure chronic ulcer of skin of other sites limited to breakdown of skin; R21 Rash and other nonspecific skin eruption; I48.91 Unspecified atrial fibrillation; I87.2 Venous insufficiency (chronic) (peripheral); L60.2 Onychogryphosis; B35.1 Tinea unguium; L28.1 Prurigo nodularis; Z87.891 Personal history of nicotine dependence; Z99.2 Dependence on renal dialysis; Z95.4 Presence of other heart-valve replacement; Z95.818 Presence of other cardiac implants and grafts; Z96.653 Presence of artificial knee joint, bilateral; Z79.01 Long term (current) use of anticoagulants; Z79.899 Other long term (current) drug therapy; X58.XXXD Exposure to other specified factors, subsequent encounter ==

== ENCOUNTER → 2024-06-12 | Outpatient (CLI) | payer MEDICARE | END | disposition home or self-care (01) | LOC: WOUNDCARE 01:43 | PROVIDERS: ATTEND Nurse Practitioner Family | DX: S81.801D Unspecified open wound, right lower leg, subsequent encounter (principal); R21 Rash and other nonspecific skin eruption; E11.622 Type 2 diabetes mellitus with other skin ulcer; L98.491 Non-pressure chronic ulcer of skin of other sites limited to breakdown of skin; I48.91 Unspecified atrial fibrillation; I87.2 Venous insufficiency (chronic) (peripheral); L60.2 Onychogryphosis; B35.1 Tinea unguium; L28.1 Prurigo nodularis; Z87.891 Personal history of nicotine dependence; Z99.2 Dependence on renal dialysis; Z95.4 Presence of other heart-valve replacement; Z95.818 Presence of other cardiac implants and grafts; Z96.653 Presence of artificial knee joint, bilateral; Z79.01 Long term (current) use of anticoagulants; Z79.899 Other long term (current) drug therapy; X58.XXXD Exposure to other specified factors, subsequent encounter ==

== ENCOUNTER → 2024-06-18 | Outpatient (CLI) | payer MEDICARE | END | disposition home or self-care (01) | LOC: WOUNDCARE 00:38 | PROVIDERS: ATTEND Nurse Practitioner Family | DX: S81.801D Unspecified open wound, right lower leg, subsequent encounter (principal); R21 Rash and other nonspecific skin eruption; E11.622 Type 2 diabetes mellitus with other skin ulcer; L98.491 Non-pressure chronic ulcer of skin of other sites limited to breakdown of skin; I48.91 Unspecified atrial fibrillation; I87.2 Venous insufficiency (chronic) (peripheral); L60.2 Onychogryphosis; B35.1 Tinea unguium; L28.1 Prurigo nodularis; Z87.891 Personal history of nicotine dependence; Z99.2 Dependence on renal dialysis; Z95.4 Presence of other heart-valve replacement; Z95.818 Presence of other cardiac implants and grafts; Z96.653 Presence of artificial knee joint, bilateral; Z79.01 Long term (current) use of anticoagulants; Z79.899 Other long term (current) drug therapy; X58.XXXD Exposure to other specified factors, subsequent encounter ==

== ENCOUNTER → 2024-06-28 | Outpatient (CLI) | payer MEDICARE | END | disposition home or self-care (01) | LOC: WOUNDCARE 02:04 | PROVIDERS: ATTEND Nurse Practitioner Family | DX: S81.801D Unspecified open wound, right lower leg, subsequent encounter (principal); R21 Rash and other nonspecific skin eruption; E11.622 Type 2 diabetes mellitus with other skin ulcer; L98.491 Non-pressure chronic ulcer of skin of other sites limited to breakdown of skin; I48.91 Unspecified atrial fibrillation; I87.2 Venous insufficiency (chronic) (peripheral); L60.2 Onychogryphosis; B35.1 Tinea unguium; M79.671 Pain in right foot; M79.672 Pain in left foot; L28.1 Prurigo nodularis; Z87.891 Personal history of nicotine dependence; Z99.2 Dependence on renal dialysis; Z95.4 Presence of other heart-valve replacement; Z95.818 Presence of other cardiac implants and grafts; Z96.653 Presence of artificial knee joint, bilateral; Z79.01 Long term (current) use of anticoagulants; Z79.899 Other long term (current) drug therapy; X58.XXXD Exposure to other specified factors, subsequent encounter ==

== ENCOUNTER → 2024-07-05 | Outpatient (CLI) | payer MEDICARE | END | disposition home or self-care (01) | LOC: WOUNDCARE 00:42 | PROVIDERS: ATTEND Nurse Practitioner Family | DX: S81.801D Unspecified open wound, right lower leg, subsequent encounter (principal); R21 Rash and other nonspecific skin eruption; E11.622 Type 2 diabetes mellitus with other skin ulcer; L98.491 Non-pressure chronic ulcer of skin of other sites limited to breakdown of skin; I48.91 Unspecified atrial fibrillation; I87.2 Venous insufficiency (chronic) (peripheral); L60.2 Onychogryphosis; B35.1 Tinea unguium; L28.1 Prurigo nodularis; Z87.891 Personal history of nicotine dependence; Z99.2 Dependence on renal dialysis; Z95.4 Presence of other heart-valve replacement; Z95.818 Presence of other cardiac implants and grafts; Z96.653 Presence of artificial knee joint, bilateral; Z79.01 Long term (current) use of anticoagulants; Z79.899 Other long term (current) drug therapy; X58.XXXD Exposure to other specified factors, subsequent encounter ==

== ENCOUNTER 2024-07-16 17:16 | Inpatient (IN) | payer MEDICARE ==
[~2024-07-16] VITALS: Ht 170.2 cm; Wt 84.1 kg
[2024-07-16 17:34] VITALS: BP 97/63
[2024-07-16 18:04] LABS: BASO # 0.1 10*3/uL (0.0-0.1); BASO % 0.8 % (0.0-1.0); EOS # 0.4 10*3/uL (0.0-0.4); EOS % 4.5 % (1.0-4.0); HEMATOCRIT 39.7 % (42.0-52.0); MEAN CELL VOLUME 97.3 fl (80.0-94.0); MEAN CORPUSCULAR HGB 32.4 pg (27.0-31.0); MEAN CORPUSCULAR HGB CONC 33.2 g/dl (33.0-37.0); MONO # 1.1 10*3/uL (0.1-1.0); MONO % 13.7 % (3.0-9.0); NEUT # 4.3 10*3/uL (2.3-7.9); NEUT % 53.6 % (47.0-73.0); PLATELET COUNT AUTOMATED 162 10*3/uL (130-400); RED BLOOD COUNT 4.08 10*6/uL (4.50-5.90); RED CELL DISTRI WIDTH 13.2 % (0-14.5)
[2024-07-16 18:15] LABS: ACT PARTIAL THROMBO TIME 29.7 SECONDS (20.0-32.1)
[2024-07-16 18:26] LABS: POTASSIUM 4.7 mmol/L (3.4-5.1); TOTAL PROTEIN 7.7 gm/dL (6.0-8.0)
[2024-07-16] MEDS ORDERED: Albuterol Sulf/Ipratropium 3 ML VIAL NEB SCH (20:20)
[2024-07-16] MEDS ORDERED: ALPRAZolam 0.5 MG TAB PO SCH (22:00)
[2024-07-16] MEDS ORDERED: Metoprolol Tartrate 25 MG TAB PO SCH (22:00)
[2024-07-16] MEDS ORDERED: GABAPENTIN 100 MG CAP PO SCH (22:00)
[2024-07-16] MEDS ORDERED: WARFARIN SODIUM1 MG PO (23:35)
[2024-07-16] MEDS ORDERED: HYDROXYZINE PAM25 M1 PO (23:35)
[2024-07-16] MEDS ORDERED: MIDODRINE HCL10 MG PO (23:36)
[2024-07-17 00:02] VITALS: BP 98/70
[2024-07-17 04:48] LABS: ALKALINE PHOSPHATASE 87 U/L (46-116); BUN 47 mg/dl (9-23); CHLORIDE 93 mmol/L (98-107); POTASSIUM 4.6 mmol/L (3.4-5.1); SGPT/ALT 9 U/L (5-49); TOTAL PROTEIN 7.4 gm/dL (6.0-8.0)
[2024-07-17 06:27] LABS: BASO # 0.1 10*3/uL (0.0-0.1); BASO % 1.1 % (0.0-1.0); EOS # 0.3 10*3/uL (0.0-0.4); EOS % 3.6 % (1.0-4.0); HEMATOCRIT 38.4 % (42.0-52.0); MEAN CELL VOLUME 98.7 fl (80.0-94.0); MEAN CORPUSCULAR HGB 32.1 pg (27.0-31.0); MEAN CORPUSCULAR HGB CONC 32.6 g/dl (33.0-37.0); MEAN PLATELET VOLUME 9.7 fl (9.6-12.3); MONO # 1.3 10*3/uL (0.1-1.0); MONO % 14.6 % (3.0-9.0); NEUT # 3.9 10*3/uL (2.3-7.9); PLATELET COUNT AUTOMATED 168 10*3/uL (130-400); RED BLOOD COUNT 3.89 10*6/uL (4.50-5.90); RED CELL DISTRI WIDTH 13.3 % (0-14.5); WHITE BLOOD COUNT 8.8 10*3/uL (4.8-10.8)
[2024-07-17] MEDS ORDERED: glipiZIDE 5 MG TAB PO SCH (07:30)
[2024-07-17 07:32] VITALS: BP 108/64
[2024-07-17] MEDS ORDERED: HEPARIN SODIUM 5,000 UNIT/ML VIAL IV SCH (08:10)
[2024-07-17] MEDS ORDERED: ALBUMIN 25% 50 ML IV PRN (08:10)
[2024-07-17] MEDS ORDERED: MANNITOL 12.5 GM/50 ML VIAL IV SCH (08:10)
[2024-07-17] MEDS ORDERED: HEPARIN SODIUM 10,000 UN/10 ML VIAL IV SCH (08:10)
[2024-07-17] MEDS ORDERED: SODIUM CHLORIDE 23.4% 120 MEQ/30 ML VIAL IV SCH (08:10)
[2024-07-17] MEDS ORDERED: SODIUM CHLORIDE 0.9% 1,000 ML IV SCH (08:10)
[2024-07-17] MEDS ORDERED: DEXTROSE 10 % IN WATER 250 ML IV PRN (09:20)
[2024-07-17] MEDS ORDERED: Clopidogrel Hydrogen Sulfate 75 MG TAB PO SCH (10:00)
[2024-07-17] MEDS ORDERED: ESCITALOPRAM OXALATE 10 MG TAB PO SCH (10:00)
[2024-07-17] MEDS ORDERED: INSULIN REGULAR, HUMAN 1 UNIT/0.01 ML SC SCH (11:30)
[2024-07-17 12:00] VITALS: BP 106/60
[2024-07-17] MEDS ORDERED: SODIUM CHLORIDE 0.9% 1,000 ML (CHILLED) IVB IV ONE (13:31)
[2024-07-17 14:19] VITALS: BP 70/45
[2024-07-17] MEDS ORDERED: Midodrine Hydrochloride 5 MG TAB PO ONE (15:05)
[2024-07-17 16:20] VITALS: BP 106/60
[2024-07-17] MEDS ORDERED: FOAM BANDAGE 5X5 T ONE (16:48)
[2024-07-17 20:00] VITALS: BP 112/56; BP 122/91
[2024-07-18] VITALS: BP 105/65
[2024-07-18 08:00] VITALS: BP 115/64
[2024-07-18] MEDS ORDERED: Midodrine Hydrochloride 5 MG TAB PO SCH (10:00)
[2024-07-18 12:00] VITALS: BP 110/69
[2024-07-18 16:00] VITALS: BP 114/85
[2024-07-18] MEDS ORDERED: CALAMINE 120 ML BOT T PRN (16:55)
[2024-07-18] MEDS ORDERED: WARFARIN SODIUM 2.5 MG TAB PO SCH (18:00)
[2024-07-18] MEDS ORDERED: hydrOXYzine pamoate 25 MG CAP PO PRN (18:45)
[2024-07-18 20:00] VITALS: BP 113/70
[2024-07-19] VITALS: BP 132/69
[2024-07-19 06:32] LABS: BASO # 0.1 10*3/uL (0.0-0.1); BASO % 1.4 % (0.0-1.0); EOS # 0.4 10*3/uL (0.0-0.4); EOS % 4.8 % (1.0-4.0); HEMATOCRIT 40.5 % (42.0-52.0); MEAN CELL VOLUME 97.6 fl (80.0-94.0); MEAN CORPUSCULAR HGB 31.6 pg (27.0-31.0); MEAN CORPUSCULAR HGB CONC 32.3 g/dl (33.0-37.0); MEAN PLATELET VOLUME 9.1 fl (9.6-12.3); MONO # 1.1 10*3/uL (0.1-1.0); MONO % 14.4 % (3.0-9.0); NEUT # 4.5 10*3/uL (2.3-7.9); NEUT % 57.7 % (47.0-73.0); PLATELET COUNT AUTOMATED 153 10*3/uL (130-400); RED BLOOD COUNT 4.15 10*6/uL (4.50-5.90); RED CELL DISTRI WIDTH 13.5 % (0-14.5); WHITE BLOOD COUNT 7.8 10*3/uL (4.8-10.8)
[2024-07-19 06:57] LABS: POTASSIUM 6.4 mmol/L (3.4-5.1)
[2024-07-19] MEDS ORDERED: Sevelamer Hydrochloride 800 MG TAB PO SCH (07:00)
[2024-07-19 08:00] VITALS: BP 114/58
[2024-07-19] MEDS ORDERED: CALAMINE LOTIO177 M3 T (08:54)
[2024-07-19] MEDS ORDERED: METOPROLOL SUCC25 M2 PO (08:54)
[2024-07-19] MEDS ORDERED: Renagel PO (08:54)
[2024-07-19] MEDS ORDERED: DEXTROSE 50% 25 GM/50 ML VIAL IV ONE (09:05)
[2024-07-19] MEDS ORDERED: INSULIN REGULAR, HUMAN 1 UNIT/0.01 ML IV ONE (09:10)
[2024-07-19] MEDS ORDERED: METOPROLOL SUCCINATE XR 25 MG TAB PO SCH (10:00)
[2024-07-19 12:00] VITALS: BP 94/53
[2024-07-19 16:00] VITALS: BP 113/62
[2024-07-19 20:00] VITALS: BP 113/78
[2024-07-19] MEDS ORDERED: CALCIUM (TUMS) 500MG PO PRN (21:15)
[2024-07-20] VITALS: BP 113/64
[2024-07-20 06:44] LABS: BASO # 0.1 10*3/uL (0.0-0.1); BASO % 1.2 % (0.0-1.0); EOS # 0.3 10*3/uL (0.0-0.4); HEMATOCRIT 38.9 % (42.0-52.0); MEAN CELL VOLUME 98.7 fl (80.0-94.0); MEAN CORPUSCULAR HGB 32.2 pg (27.0-31.0); MEAN CORPUSCULAR HGB CONC 32.6 g/dl (33.0-37.0); MEAN PLATELET VOLUME 8.9 fl (9.6-12.3); MONO # 1.2 10*3/uL (0.1-1.0); MONO % 15.7 % (3.0-9.0); NEUT # 4.5 10*3/uL (2.3-7.9); NEUT % 58.9 % (47.0-73.0); PLATELET COUNT AUTOMATED 158 10*3/uL (130-400); RED BLOOD COUNT 3.94 10*6/uL (4.50-5.90); RED CELL DISTRI WIDTH 13.4 % (0-14.5); WHITE BLOOD COUNT 7.7 10*3/uL (4.8-10.8)
[2024-07-20] MEDS ORDERED: SODIUM CHLORIDE 0.9% 1,000 ML BAG IV ONE (08:27)
[2024-07-20] MEDS ORDERED: Gelatin Sponge 1 EACH SPON T ONE (08:27)
[2024-07-20] MEDS ORDERED: AMMONIUM LACTATE 12% LOTION T SCH (10:00)
[2024-07-20] MEDS ORDERED: Midodrine Hydrochloride 5 MG TAB PO ONE (10:35)
[2024-07-20 12:00] VITALS: BP 141/66
[2024-07-20 13:15] VITALS: BP 116/77
[2024-07-20] MEDS ORDERED: ACETAMINOPHEN 325 MG TAB PO ONE (14:00)
[2024-07-20 16:00] VITALS: BP 99/68
[2024-07-20 20:00] VITALS: BP 102/55
[2024-07-21] VITALS: BP 90/61
[2024-07-21 06:03] LABS: BASO # 0.1 10*3/uL (0.0-0.1); BASO % 1.4 % (0.0-1.0); EOS # 0.3 10*3/uL (0.0-0.4); EOS % 3.4 % (1.0-4.0); HEMATOCRIT 42.2 % (42.0-52.0); MEAN CELL VOLUME 99.8 fl (80.0-94.0); MEAN CORPUSCULAR HGB 32.4 pg (27.0-31.0); MEAN CORPUSCULAR HGB CONC 32.5 g/dl (33.0-37.0); MEAN PLATELET VOLUME 9.3 fl (9.6-12.3); MONO # 1.3 10*3/uL (0.1-1.0); MONO % 17.9 % (3.0-9.0); NEUT % 55.2 % (47.0-73.0); PLATELET COUNT AUTOMATED 199 10*3/uL (130-400); RED BLOOD COUNT 4.23 10*6/uL (4.50-5.90); RED CELL DISTRI WIDTH 13.4 % (0-14.5); WHITE BLOOD COUNT 7.3 10*3/uL (4.8-10.8)
[2024-07-21] MEDS ORDERED: Ondansetron Hydrochloride 4 MG/2 ML VIAL IV PRN (07:05)
[2024-07-21 08:00] VITALS: BP 105/62
[2024-07-21] MEDS ORDERED: Midodrine Hydrochloride 5 MG TAB PO ONE (08:55)
[2024-07-21] MEDS ORDERED: SODIUM CHLORIDE 0.9% 1,000 ML BAG IV ONE (09:14)
[2024-07-21] MEDS ORDERED: Gelatin Sponge 1 EACH SPON T ONE (09:14)
[2024-07-21 12:00] VITALS: BP 109/64
[2024-07-21 16:00] VITALS: BP 106/58
[2024-07-21] MEDS ORDERED: 'XANAX1 MG PO (17:31)
== END 2024-07-21 18:10 | DRG 291 ==
LOC: ED 17:16 → EDHOLD 18:52 → 4E 18:52
PROVIDERS: Emergency Medicine; Internal Medicine Nephrology; ADMIT Internal Medicine; ATTEND Internal Medicine
PROC: 5A1D70Z Performance of Urinary Filtration, Intermittent, Less than 6 Hours Per Day (ICD-10-PCS; 2024-07-17)
PROC: 5A09357 Assistance with Respiratory Ventilation, Less than 24 Consecutive Hours, Continuous Positive Airway Pressure (ICD-10-PCS; principal; 2024-07-19)
PROC: 5A1D70Z Performance of Urinary Filtration, Intermittent, Less than 6 Hours Per Day (ICD-10-PCS; 2024-07-19)
PROC: 5A09357 Assistance with Respiratory Ventilation, Less than 24 Consecutive Hours, Continuous Positive Airway Pressure (ICD-10-PCS; 2024-07-20)
PROC: 5A1D70Z Performance of Urinary Filtration, Intermittent, Less than 6 Hours Per Day (ICD-10-PCS; 2024-07-20)
PROC: 5A1D70Z Performance of Urinary Filtration, Intermittent, Less than 6 Hours Per Day (ICD-10-PCS; 2024-07-21)
DX: I13.2 Hypertensive heart and chronic kidney disease with heart failure and with stage 5 chronic kidney disease, or end stage renal disease (principal); I50.31 Acute diastolic (congestive) heart failure; J18.9 Pneumonia, unspecified organism; N18.6 End stage renal disease; I48.21 Permanent atrial fibrillation; Z68.45 Body mass index [BMI] 70 or greater, adult; R62.7 Adult failure to thrive; E87.5 Hyperkalemia; W18.39XA Other fall on same level, initial encounter; F41.1 Generalized anxiety disorder; L28.1 Prurigo nodularis; S89.91XA Unspecified injury of right lower leg, initial encounter; E11.22 Type 2 diabetes mellitus with diabetic chronic kidney disease; I25.118 Atherosclerotic heart disease of native coronary artery with other forms of angina pectoris; Z87.448 Personal history of other diseases of urinary system; Z95.1 Presence of aortocoronary bypass graft; Z95.2 Presence of prosthetic heart valve; Y93.89 Activity, other specified; Y92.89 Other specified places as the place of occurrence of the external cause; Y99.8 Other external cause status; Z88.5 Allergy status to narcotic agent; Z79.899 Other long term (current) drug therapy; Z79.01 Long term (current) use of anticoagulants

== ENCOUNTER 2024-10-05 11:02 | Emergency (ER) | payer MEDICARE ==
[~2024-10-05 11:02] MED LIST changes: +AIRSUPRA 90-810.7 GM INH; +CALAMINE LOTIO177 M3 T; +COLACE100 MG PO; +CYMBALTA20 M1 PO; +ELIQUIS2.5 M1 PO; +ELIQUIS5 M1 PO; +HYDROXYZINE HCL25 MG PO; +HYDROXYZINE PAM25 M1 PO; +Ipratropium Brom3 ML NEB; +METOPROLOL SUCC25 M2 PO; +MIDODRINE HCL10 MG PO; +MYSOLINE50 M2 PO; +PACERONE200 MG PO; +PAIN RELIEVER325 MG PO; +Renagel PO; +TAMIFLU30 MG PO; +Tamiflu PO; +WARFARIN SODIUM1 MG PO; +[UNRECOGNIZED DRUG - OTHER] PO
[2024-10-05] MEDS ORDERED: INSULIN REGULAR, HUMAN 1 UNIT/0.01 ML ONE (11:30)
[2024-10-05] MEDS ORDERED: CALCIUM GLUCONATE 1 GM/10 ML VIAL ONE (11:30)
[2024-10-05] MEDS ORDERED: DEXTROSE 50% 25 GM/50 ML SYR IV ONE ×2 (11:31→11:38)
[2024-10-05 11:37] VITALS: BP 53/27
[2024-10-05] MEDS ORDERED: NOREPINEPHRINE BITARTRATE/D5W 250 ML IV ONE (11:44)
[2024-10-05] MEDS ORDERED: EPINEPHrine Hydrochloride 1 MG/10 ML SYR IV ONE (11:45)
[2024-10-05] MEDS ORDERED: VASOPRESSIN 100 ML IV ONE (11:50)
[2024-10-09] MEDS ORDERED: ATROPINE SULFATE 1 MG/10 ML SYR IV ONE (14:59)
[2024-10-09] MEDS ORDERED: CALCIUM CHLORIDE 1 GM/10 ML SYR IV ONE (14:59)
[2024-10-09] MEDS ORDERED: EPINEPHrine Hydrochloride 1 MG/10 ML SYR IV ONE (14:59)
[2024-10-09] MEDS ORDERED: Lidocaine Hydrochloride 2% 5 ML SDV IV ONE (14:59)
[2024-10-09] MEDS ORDERED: Amiodarone Hydrochloride 150 MG/3 ML VIAL IV ONE (14:59)
[2024-10-09] MEDS ORDERED: SODIUM BICARBONATE 50 MEQ/50 ML SYR IV ONE (14:59)
[2024-10-09] MEDS ORDERED: DEXTROSE 5% 250 ML BAG IV ONE (14:59)
[2024-10-09] MEDS ORDERED: MAGNESIUM SULFATE 2 GM/50 ML IVB IV ONE (14:59)
== END 2024-10-05 11:43 ==
LOC: ED 11:02
DX: I46.9 Cardiac arrest, cause unspecified (principal); I13.2 Hypertensive heart and chronic kidney disease with heart failure and with stage 5 chronic kidney disease, or end stage renal disease; E11.22 Type 2 diabetes mellitus with diabetic chronic kidney disease; I50.9 Heart failure, unspecified; N18.6 End stage renal disease; I25.10 Atherosclerotic heart disease of native coronary artery without angina pectoris; E78.5 Hyperlipidemia, unspecified; Z99.2 Dependence on renal dialysis; Z79.899 Other long term (current) drug therapy; Z79.84 Long term (current) use of oral hypoglycemic drugs; Z96.651 Presence of right artificial knee joint; Z98.890 Other specified postprocedural states